=== PATIENT | female | born 1970 | race Caucasian/White ===

== ENCOUNTER → 2017-01-01 | Outpatient (CLI) | payer BC ==
[~2017-01-01] MED LIST: ATOR10TA9 PO; BENA20TA2 PO; CARV-39 PO; CARV12.52 PO; CEFD300C37 PO; CHOL500050 PO; FURO-92 PO; FURO-93 PO; INDA2.5T PO; INSU100I18 SC; INSU100V13 SC; INSU100V5 SQ-INSULIN; LEVO100T5 PO; LEVO500T33 PO; LORA0.5T PO; METF10002 PO; Oxygen INH; PIOG15TA2 PO; POTA20TA14 PO; PRED20TA PO
[2017-01-01 12:48] LABS: BLOOD UREA NITROGEN 20 mg/dL (7-18)
[2017-01-01 12:51] LABS: ASPARTATE AMINO TRANSFERASE 89 U/L (15-37)
== END | disposition home or self-care (01) ==
LOC: STAR 11:33
PROVIDERS: ATTEND Surgery
DX: Z01.818 Encounter for other preprocedural examination (principal); E11.9 Type 2 diabetes mellitus without complications; I10 Essential (primary) hypertension; E78.00 Pure hypercholesterolemia, unspecified
CPT/HCPCS: 36415; 80053; 85025; 93005

== ENCOUNTER 2017-01-21 20:56 | Inpatient (IN) | payer BC ==
[~2017-01-21] VITALS: Ht 177.8 cm; Wt 132.0 kg
[~2017-01-21 20:56] MED LIST changes: -LEVO500T33 PO; +LEVO500T47 PO
[2017-01-21] MEDS ORDERED: SODIUM CHLORIDE FLUSH 10ML SYR IVF ONE (21:00)
[2017-01-21] MEDS ORDERED: NYST1000 PO (21:19)
[2017-01-21] MEDS ORDERED: INSU100V13 SQ-INSULIN (21:19)
[2017-01-21] MEDS ORDERED: DOXY100T PO (21:19)
[2017-01-21 21:20] LABS: HEMATOCRIT 27.6 % (34.6-47.8); HEMOGLOBIN 9.1 g/dL (11.7-16.4); WHITE BLOOD COUNT 11.1 x10^3/uL (3.4-10)
[2017-01-21 21:32] LABS: ASPARTATE AMINO TRANSFERASE 41 U/L (15-37); BLOOD UREA NITROGEN 30 mg/dL (7-18)
[2017-01-21 21:37] LABS: DIFF TOTAL CELLS COUNTED 100 CELL DIFF
[2017-01-21 21:39] LABS: VERIFY COUNTS? YES
[2017-01-21 21:40] LABS: ANISOCYTOSIS 1+; LARGE PLATELETS 1+; POLYCHROMASIA 1+
[2017-01-21] MEDS ORDERED: CEFTAROLINE 600 MG in SODIUM CHLORIDE 0.9% 100 ML IV ONE (22:00)
[2017-01-21] MEDS ORDERED: SODIUM CHLORIDE 0.9% 1,000 ML IV ONE (22:42)
[2017-01-21] MEDS ORDERED: SODIUM CHLORIDE 0.9% 1,000ML IVBOLUS ONE (23:00)
[2017-01-21] MEDS ORDERED: ONDANSETRON 2MG/ML, 2ML IVPush PRN (23:00)
[2017-01-21] MEDS ORDERED: MORPHINE SULFATE 4 MG/ML, 1ML IVPush PRN (23:00)
[2017-01-21] MEDS ORDERED: OXYGEN INH SCH (23:30)
[2017-01-21] MEDS: CEFTAROLINE 300 MG in SODIUM CHLORIDE 0.9% 100 ML IV SCH (23:30)
[2017-01-21] MEDS: LORazepam 0.5MG TABLET PO SCH (23:30)
[2017-01-21] MEDS ORDERED: POLYETHYLENE GLYCOL 17 GM PACKET PO PRN (23:30)
[2017-01-21] MEDS: INSULIN REGULAR 100 UNITS/ML, 3ML VIAL SQ-INSULIN SCH (23:30)
[2017-01-21] MEDS: CARVEDILOL 25 MG TABLET PO SCH (23:30)
[2017-01-21] MEDS ORDERED: BISACODYL 10 MG SUPP PR PRN (23:30)
[2017-01-22] MEDS: ATORVASTATIN 10 MG TABLET PO SCH ×2 (01:47→20:08)
[2017-01-22] MEDS: CARVEDILOL 25 MG TABLET PO SCH (01:47)
[2017-01-22] MEDS: HEPARIN 5,000 UNITS/ML, 1ML SQ SCH ×3 (01:47→20:18)
[2017-01-22] MEDS: LORazepam 0.5MG TABLET PO SCH ×3 (01:47→20:10)
[2017-01-22] MEDS: NYSTATIN 500,000 UNITS/5 ML UDC PO SCH ×4 (01:47→20:08)
[2017-01-22] MEDS: SODIUM CHLORIDE 0.9% 1,000 ML IV SCH ×3 (01:47→22:37)
[2017-01-22] MEDS: INSULIN DETEMIR 100 UNITS/ML, PEN SQ-INSULIN SCH ×4 (01:48→20:10)
[2017-01-22 02:00] VITALS: BP 101/65
[2017-01-22] MEDS: METRONIDAZOLE PMX 500MG/100ML 100 ML IV SCH ×3 (05:18→22:37)
[2017-01-22 05:39] LABS: HEMATOCRIT 27.1 % (34.6-47.8)
[2017-01-22 05:48] LABS: ASPARTATE AMINO TRANSFERASE 44 U/L (15-37); BLOOD UREA NITROGEN 30 mg/dL (7-18)
[2017-01-22 06:00] LABS: DIFF TOTAL CELLS COUNTED 100 CELL DIFF
[2017-01-22 06:01] LABS: ANISOCYTOSIS 1+; POLYCHROMASIA 1+; VERIFY COUNTS? YES
[2017-01-22 06:02] LABS: LARGE PLATELETS 1+
[2017-01-22] MEDS: INSULIN REGULAR 100 UNITS/ML, 3ML VIAL SQ-INSULIN SCH ×3 (07:00→16:00)
[2017-01-22 07:59] VITALS: BP 103/65
[2017-01-22] MEDS: SENNA/DOCUSATE TABLET PO SCH (09:00)
[2017-01-22] MEDS: ERGOCALCIFEROL 50,000 UNIT CAPSULE PO SCH (09:00)
[2017-01-22] MEDS: LEVOTHYROXINE 150 MCG TABLET PO SCH (11:36)
[2017-01-22] MEDS: CEFTRIAXONE PMX 2GM/50ML 50 ML IV SCH (11:36)
[2017-01-22] MEDS: CEFTAROLINE 300 MG in SODIUM CHLORIDE 0.9% 100 ML IV SCH (13:09)
[2017-01-22] MEDS: HYDROCORTISONE 10 MG TABLET PO SCH (13:10)
[2017-01-22 14:00] VITALS: BP 103/58
[2017-01-22] MEDS: HYDROCORTISONE 5 MG TABLET PO SCH (17:20)
[2017-01-22] MEDS: INSULIN ASPART 100 UNITS/ML, PEN SQ-INSULIN SCH ×2 (18:00→20:11)
[2017-01-22 21:10] VITALS: BP 107/65
[2017-01-23 02:00] VITALS: BP 112/68
[2017-01-23] MEDS ORDERED: LORazepam 1MG TABLET ONE (03:25)
[2017-01-23] MEDS: LORazepam 0.5MG TABLET PO SCH ×3 (03:29→20:36)
[2017-01-23] MEDS: NYSTATIN 500,000 UNITS/5 ML UDC PO SCH ×4 (03:33→20:37)
[2017-01-23] MEDS: HEPARIN 5,000 UNITS/ML, 1ML SQ SCH ×3 (03:33→20:36)
[2017-01-23 04:56] LABS: HEMATOCRIT 27.8 % (34.6-47.8); HEMOGLOBIN 9.1 g/dL (11.7-16.4); WHITE BLOOD COUNT 15.9 x10^3/uL (3.4-10)
[2017-01-23 05:02] LABS: ASPARTATE AMINO TRANSFERASE 33 U/L (15-37); BLOOD UREA NITROGEN 30 mg/dL (7-18); TOTAL IRON BINDING CAPACITY 129 mcg/dL (250-450)
[2017-01-23] MEDS: ONDANSETRON 2MG/ML, 2ML IVPush PRN ×2 (05:39→20:40)
[2017-01-23 05:44] LABS: DIFF TOTAL CELLS COUNTED 100 CELL DIFF
[2017-01-23 05:48] LABS: VERIFY COUNTS? YES
[2017-01-23 05:49] LABS: ANISOCYTOSIS 1+; POLYCHROMASIA 1+
[2017-01-23 08:15] VITALS: BP 143/77
[2017-01-23] MEDS: SODIUM CHLORIDE 0.9% 1,000 ML IV SCH (08:24)
[2017-01-23] MEDS: METRONIDAZOLE PMX 500MG/100ML 100 ML IV SCH (08:25)
[2017-01-23] MEDS: HYDROCORTISONE 10 MG TABLET PO SCH (08:25)
[2017-01-23] MEDS: SENNA/DOCUSATE TABLET PO SCH (08:35)
[2017-01-23] MEDS: INSULIN REGULAR 100 UNITS/ML, 3ML VIAL SQ-INSULIN SCH ×3 (08:35→16:49)
[2017-01-23] MEDS: INSULIN ASPART 100 UNITS/ML, PEN SQ-INSULIN SCH ×4 (08:47→20:39)
[2017-01-23] MEDS: LEVOTHYROXINE 150 MCG TABLET PO SCH (08:48)
[2017-01-23] MEDS: INSULIN DETEMIR 100 UNITS/ML, PEN SQ-INSULIN SCH ×2 (08:48→20:39)
[2017-01-23] MEDS: CEFTRIAXONE PMX 2GM/50ML 50 ML IV SCH (11:26)
[2017-01-23] MEDS ORDERED: MAGNESIUM SULFATE PMX 2GM/50ML 50 ML IV ONE (13:00)
[2017-01-23] MEDS ORDERED: VANCOMYCIN PER PHARMACY MC PRN (13:00)
[2017-01-23] MEDS ORDERED: FUROSEMIDE 40 MG/4 ML IV ONE (13:00)
[2017-01-23] MEDS ORDERED: VANCOMYCIN PMX 1GM/200ML 200 ML IV ONE (13:00)
[2017-01-23] MEDS ORDERED: PHARMACOKINETIC MONITORING MC PRN (13:30)
[2017-01-23] MEDS ORDERED: VANCOMYCIN 2,000 MG in SODIUM CHLORIDE 0.9% 500 ML IV ONE (13:30)
[2017-01-23] MEDS ORDERED: PHARMACOKINETIC CONSULTATION MC ONE (13:30)
[2017-01-23] MEDS: metroNIDAZOLE 500 MG TABLET PO SCH ×2 (14:21→20:37)
[2017-01-23] MEDS: BACITRACIN ZINC OINT 500U/GM, 0.9 GM TP SCH ×3 (16:56→20:40)
[2017-01-23 17:01] VITALS: BP 107/65
[2017-01-23] MEDS: HYDROCORTISONE 5 MG TABLET PO SCH (18:17)
[2017-01-23 19:24] VITALS: BP 111/65
[2017-01-23] MEDS: ALBUMIN HUMAN 25% 100 ML IV SCH (20:36)
[2017-01-23] MEDS: SULFAMETH./TRIMETHOPRIM DS 800MG/160MG TABLET PO SCH (20:37)
[2017-01-23] MEDS: ATORVASTATIN 10 MG TABLET PO SCH (20:37)
[2017-01-23] MEDS: ACETAMINOPHEN 325 MG TABLET PO PRN (23:58)
[2017-01-24 01:36] VITALS: BP 113/72
[2017-01-24] MEDS: SODIUM CHLORIDE 0.9% 1,000 ML IV SCH ×2 (02:34→12:35)
[2017-01-24] MEDS: NYSTATIN 500,000 UNITS/5 ML UDC PO SCH ×4 (05:03→21:56)
[2017-01-24] MEDS: metroNIDAZOLE 500 MG TABLET PO SCH ×3 (05:04→21:56)
[2017-01-24] MEDS: HEPARIN 5,000 UNITS/ML, 1ML SQ SCH ×3 (05:04→21:55)
[2017-01-24] MEDS: LEVOTHYROXINE 150 MCG TABLET PO SCH (06:08)
[2017-01-24 06:26] LABS: HEMATOCRIT 27.4 % (34.6-47.8); WHITE BLOOD COUNT 18.9 x10^3/uL (3.4-10)
[2017-01-24 06:41] LABS: BLOOD UREA NITROGEN 32 mg/dL (7-18)
[2017-01-24 06:52] LABS: DIFF TOTAL CELLS COUNTED 100 CELL DIFF
[2017-01-24 06:54] LABS: VERIFY COUNTS? YES
[2017-01-24 06:59] LABS: ANISOCYTOSIS 1+; POIKILOCYTOSIS 1+; POLYCHROMASIA 1+
[2017-01-24] MEDS: INSULIN REGULAR 100 UNITS/ML, 3ML VIAL SQ-INSULIN SCH ×3 (07:00→15:24)
[2017-01-24 07:57] VITALS: BP 132/75
[2017-01-24] MEDS: SENNA/DOCUSATE TABLET PO SCH (08:32)
[2017-01-24] MEDS: ALBUMIN HUMAN 25% 100 ML IV SCH ×2 (08:46→21:55)
[2017-01-24] MEDS: SULFAMETH./TRIMETHOPRIM DS 800MG/160MG TABLET PO SCH (08:47)
[2017-01-24] MEDS: HYDROCORTISONE 10 MG TABLET PO SCH (08:48)
[2017-01-24] MEDS: INSULIN ASPART 100 UNITS/ML, PEN SQ-INSULIN SCH ×4 (08:48→22:04)
[2017-01-24] MEDS: INSULIN DETEMIR 100 UNITS/ML, PEN SQ-INSULIN SCH ×2 (08:49→22:04)
[2017-01-24] MEDS: LORazepam 0.5MG TABLET PO SCH ×2 (08:50→21:56)
[2017-01-24] MEDS: BACITRACIN ZINC OINT 500U/GM, 0.9 GM TP SCH ×3 (08:54→21:00)
[2017-01-24] MEDS: CEFTRIAXONE PMX 2GM/50ML 50 ML IV SCH (12:34)
[2017-01-24 13:46] VITALS: BP 130/72
[2017-01-24] MEDS: HYDROCORTISONE 5 MG TABLET PO SCH (16:50)
[2017-01-24 21:00] VITALS: BP 132/74
[2017-01-24] MEDS: ATORVASTATIN 10 MG TABLET PO SCH (21:56)
[2017-01-24] MEDS ORDERED: VANCOMYCIN 1,500 MG in SODIUM CHLORIDE 0.9% 250 ML IV ONE (22:00)
[2017-01-25] MEDS: SODIUM CHLORIDE 0.9% 1,000 ML IV SCH ×2 (00:14→11:52)
[2017-01-25 01:00] VITALS: BP 120/71
[2017-01-25] MEDS: NYSTATIN 500,000 UNITS/5 ML UDC PO SCH ×4 (05:10→20:53)
[2017-01-25] MEDS: HEPARIN 5,000 UNITS/ML, 1ML SQ SCH ×3 (05:10→20:26)
[2017-01-25] MEDS: LEVOTHYROXINE 150 MCG TABLET PO SCH (05:11)
[2017-01-25] MEDS: metroNIDAZOLE 500 MG TABLET PO SCH ×3 (05:11→20:27)
[2017-01-25] MEDS: ONDANSETRON 2MG/ML, 2ML IVPush PRN (05:28)
[2017-01-25] MEDS: INSULIN ASPART 100 UNITS/ML, PEN SQ-INSULIN SCH ×4 (07:00→20:54)
[2017-01-25] MEDS: INSULIN REGULAR 100 UNITS/ML, 3ML VIAL SQ-INSULIN SCH ×3 (07:00→16:00)
[2017-01-25 08:11] VITALS: BP 151/79
[2017-01-25] MEDS: BACITRACIN ZINC OINT 500U/GM, 0.9 GM TP SCH ×3 (09:00→21:00)
[2017-01-25] MEDS: SENNA/DOCUSATE TABLET PO SCH (09:00)
[2017-01-25] MEDS: LORazepam 0.5MG TABLET PO SCH ×2 (09:00→20:53)
[2017-01-25] MEDS ORDERED: LORazepam 1MG TABLET ONE (10:07)
[2017-01-25 10:17] LABS: BLOOD UREA NITROGEN 35 mg/dL (7-18)
[2017-01-25] MEDS: ALBUMIN HUMAN 25% 100 ML IV SCH ×2 (10:19→20:26)
[2017-01-25 10:20] LABS: ASPARTATE AMINO TRANSFERASE 18 U/L (15-37)
[2017-01-25] MEDS: HYDROCORTISONE 10 MG TABLET PO SCH (10:20)
[2017-01-25 12:09] VITALS: BP 164/85
[2017-01-25] MEDS: INSULIN DETEMIR 100 UNITS/ML, PEN SQ-INSULIN SCH ×2 (12:10→20:55)
[2017-01-25] MEDS: CEFTRIAXONE PMX 2GM/50ML 50 ML IV SCH (12:56)
[2017-01-25] MEDS: HYDROCORTISONE 5 MG TABLET PO SCH (16:54)
[2017-01-25 18:49] VITALS: BP 152/83
[2017-01-25] MEDS ORDERED: VANCOMYCIN PER PHARMACY MC PRN (20:00)
[2017-01-25] MEDS ORDERED: BISACODYL 10 MG SUPP PR PRN (20:00)
[2017-01-25] MEDS ORDERED: PHARMACOKINETIC MONITORING MC PRN (20:00)
[2017-01-25] MEDS ORDERED: POLYETHYLENE GLYCOL 17 GM PACKET PO PRN (20:00)
[2017-01-25] MEDS: ATORVASTATIN 10 MG TABLET PO SCH (20:27)
[2017-01-26] MEDS: SODIUM CHLORIDE 0.9% 1,000 ML IV SCH ×2 (00:58→10:20)
[2017-01-26 03:24] VITALS: BP 144/76
[2017-01-26] MEDS: NYSTATIN 500,000 UNITS/5 ML UDC PO SCH ×4 (03:27→21:19)
[2017-01-26 04:57] LABS: HEMATOCRIT 26.9 % (34.6-47.8)
[2017-01-26] MEDS: HEPARIN 5,000 UNITS/ML, 1ML SQ SCH ×3 (04:59→21:13)
[2017-01-26] MEDS: LEVOTHYROXINE 150 MCG TABLET PO SCH (04:59)
[2017-01-26] MEDS: metroNIDAZOLE 500 MG TABLET PO SCH (04:59)
[2017-01-26 05:21] LABS: ASPARTATE AMINO TRANSFERASE 17 U/L (15-37); BLOOD UREA NITROGEN 32 mg/dL (7-18)
[2017-01-26 05:37] LABS: DIFF TOTAL CELLS COUNTED 100 CELL DIFF
[2017-01-26 05:39] LABS: ANISOCYTOSIS 1+; VERIFY COUNTS? YES
[2017-01-26 05:40] LABS: POLYCHROMASIA 1+
[2017-01-26] MEDS ORDERED: INSULIN REGULAR 100 UNITS/ML, 3ML VIAL SQ-INSULIN SCH (07:00)
[2017-01-26] MEDS: INSULIN ASPART 100 UNITS/ML, PEN SQ-INSULIN SCH ×4 (07:00→21:23)
[2017-01-26 07:01] VITALS: BP 130/78
[2017-01-26] MEDS: SENNA/DOCUSATE TABLET PO SCH (09:00)
[2017-01-26] MEDS: LORazepam 0.5MG TABLET PO SCH ×2 (09:00→21:20)
[2017-01-26] MEDS: LACTOBACILLUS 1GM/ PACKET PO SCH ×3 (09:00→21:19)
[2017-01-26] MEDS: HYDROCORTISONE 10 MG TABLET PO SCH (10:03)
[2017-01-26] MEDS: METRONIDAZOLE PMX 500MG/100ML 100 ML IV SCH ×2 (10:04→17:14)
[2017-01-26] MEDS: VANCOMYCIN 50 MG/ML ORAL SUSP PO SCH ×3 (10:04→21:22)
[2017-01-26] MEDS: BACITRACIN ZINC OINT 500U/GM, 0.9 GM TP SCH ×3 (10:04→21:19)
[2017-01-26] MEDS: INSULIN DETEMIR 100 UNITS/ML, PEN SQ-INSULIN SCH ×2 (10:05→21:24)
[2017-01-26 10:55] LABS: HEMOGLOBIN 9.3 g/dL (11.7-16.4); WHITE BLOOD COUNT 17.2 x10^3/uL (3.4-10)
[2017-01-26 11:05] LABS: ASPARTATE AMINO TRANSFERASE 17 U/L (15-37); BLOOD UREA NITROGEN 31 mg/dL (7-18)
[2017-01-26 11:30] LABS: DIFF TOTAL CELLS COUNTED 100 CELL DIFF
[2017-01-26 11:31] LABS: ANISOCYTOSIS 1+; POIKILOCYTOSIS 1+; POLYCHROMASIA 1+; VERIFY COUNTS? YES
[2017-01-26] MEDS: ALBUMIN HUMAN 25% 100 ML IV SCH ×2 (11:32→21:15)
[2017-01-26 13:17] VITALS: BP 146/87
[2017-01-26] MEDS: CEFTRIAXONE PMX 2GM/50ML 50 ML IV SCH (15:43)
[2017-01-26] MEDS: HYDROCORTISONE 5 MG TABLET PO SCH (17:15)
[2017-01-26 20:00] VITALS: BP 143/75
[2017-01-26] MEDS: ATORVASTATIN 10 MG TABLET PO SCH (21:19)
[2017-01-27 01:30] LABS: OCCBLD OBC PASS
[2017-01-27] MEDS: METRONIDAZOLE PMX 500MG/100ML 100 ML IV SCH ×3 (01:55→18:04)
[2017-01-27 02:00] VITALS: BP 132/75
[2017-01-27] MEDS: HEPARIN 5,000 UNITS/ML, 1ML SQ SCH ×3 (04:10→21:12)
[2017-01-27] MEDS: VANCOMYCIN 50 MG/ML ORAL SUSP PO SCH ×4 (04:10→21:13)
[2017-01-27] MEDS: NYSTATIN 500,000 UNITS/5 ML UDC PO SCH ×4 (04:10→21:15)
[2017-01-27] MEDS: LEVOTHYROXINE 150 MCG TABLET PO SCH ×2 (05:54→08:46)
[2017-01-27] MEDS: INSULIN ASPART 100 UNITS/ML, PEN SQ-INSULIN SCH ×4 (07:00→21:15)
[2017-01-27 07:56] VITALS: BP 138/78
[2017-01-27] MEDS: LORazepam 0.5MG TABLET PO SCH ×2 (08:31→21:12)
[2017-01-27] MEDS: SENNA/DOCUSATE TABLET PO SCH (08:31)
[2017-01-27] MEDS: LACTOBACILLUS 1GM/ PACKET PO SCH ×3 (08:46→21:13)
[2017-01-27] MEDS: SODIUM CHLORIDE 0.9% 1,000 ML IV SCH ×2 (08:47→18:05)
[2017-01-27] MEDS: HYDROCORTISONE 10 MG TABLET PO SCH (08:47)
[2017-01-27] MEDS: BACITRACIN ZINC OINT 500U/GM, 0.9 GM TP SCH ×2 (13:29→17:15)
[2017-01-27] MEDS: INSULIN DETEMIR 100 UNITS/ML, PEN SQ-INSULIN SCH ×2 (13:32→21:14)
[2017-01-27 13:48] VITALS: BP 149/103
[2017-01-27] MEDS: CEFTRIAXONE PMX 2GM/50ML 50 ML IV SCH (17:15)
[2017-01-27] MEDS: HYDROCORTISONE 5 MG TABLET PO SCH (18:05)
[2017-01-27 20:00] VITALS: BP 145/75
[2017-01-27] MEDS: ATORVASTATIN 10 MG TABLET PO SCH (21:13)
[2017-01-27] MEDS: BACITRACIN OINT 500U/GM, 15 GM TP SCH (21:22)
[2017-01-27] MEDS: ALBUMIN HUMAN 25% 100 ML IV SCH (21:22)
[2017-01-28] MEDS: METRONIDAZOLE PMX 500MG/100ML 100 ML IV SCH ×3 (00:49→18:45)
[2017-01-28 02:00] VITALS: BP 144/74
[2017-01-28] MEDS: VANCOMYCIN 50 MG/ML ORAL SUSP PO SCH ×4 (03:38→21:02)
[2017-01-28] MEDS: NYSTATIN 500,000 UNITS/5 ML UDC PO SCH ×4 (03:38→21:02)
[2017-01-28] MEDS: HEPARIN 5,000 UNITS/ML, 1ML SQ SCH ×3 (03:46→21:01)
[2017-01-28] MEDS: LEVOTHYROXINE 150 MCG TABLET PO SCH ×2 (05:30→05:37)
[2017-01-28 07:22] VITALS: BP 141/78
[2017-01-28] MEDS: SENNA/DOCUSATE TABLET PO SCH (08:11)
[2017-01-28] MEDS: INSULIN ASPART 100 UNITS/ML, PEN SQ-INSULIN SCH ×4 (08:20→21:03)
[2017-01-28] MEDS: LORazepam 0.5MG TABLET PO SCH ×3 (09:00→21:07)
[2017-01-28] MEDS: HYDROCORTISONE 10 MG TABLET PO SCH (10:12)
[2017-01-28] MEDS: SODIUM CHLORIDE 0.9% 1,000 ML IV SCH ×2 (10:12→21:26)
[2017-01-28] MEDS: BACITRACIN OINT 500U/GM, 15 GM TP SCH ×3 (10:13→21:02)
[2017-01-28] MEDS: ALBUMIN HUMAN 25% 100 ML IV SCH (10:13)
[2017-01-28] MEDS: INSULIN DETEMIR 100 UNITS/ML, PEN SQ-INSULIN SCH ×2 (10:14→21:04)
[2017-01-28] MEDS: LACTOBACILLUS 1GM/ PACKET PO SCH ×3 (10:28→21:01)
[2017-01-28 11:21] LABS: ASPARTATE AMINO TRANSFERASE 20 U/L (15-37); BLOOD UREA NITROGEN 22 mg/dL (7-18)
[2017-01-28 13:06] VITALS: BP 146/81
[2017-01-28] MEDS ORDERED: VANCOMYCIN 1,900 MG in SODIUM CHLORIDE 0.9% 250 ML IV ONE (15:00)
[2017-01-28] MEDS ORDERED: VANCOMYCIN 1,200 MG in SODIUM CHLORIDE 0.9% 250 ML IV ONE (15:00)
[2017-01-28] MEDS: CEFTRIAXONE PMX 2GM/50ML 50 ML IV SCH (16:11)
[2017-01-28] MEDS: HYDROCORTISONE 5 MG TABLET PO SCH ×2 (17:57→18:17)
[2017-01-28] MEDS: ACETAMINOPHEN 325 MG TABLET PO PRN (18:10)
[2017-01-28 20:00] VITALS: BP 144/76
[2017-01-28] MEDS: ATORVASTATIN 10 MG TABLET PO SCH (21:01)
[2017-01-29] MEDS: VANCOMYCIN 50 MG/ML ORAL SUSP PO SCH ×4 (03:00→20:50)
[2017-01-29] MEDS: METRONIDAZOLE PMX 500MG/100ML 100 ML IV SCH ×3 (03:00→19:24)
[2017-01-29] MEDS: HEPARIN 5,000 UNITS/ML, 1ML SQ SCH ×3 (04:00→19:25)
[2017-01-29] MEDS: NYSTATIN 500,000 UNITS/5 ML UDC PO SCH ×4 (04:00→22:00)
[2017-01-29] MEDS: ACETAMINOPHEN 325 MG TABLET PO PRN (04:00)
[2017-01-29 05:01] LABS: HEMATOCRIT 26.3 % (34.6-47.8); HEMOGLOBIN 8.5 g/dL (11.7-16.4)
[2017-01-29 05:17] LABS: ASPARTATE AMINO TRANSFERASE 19 U/L (15-37); BLOOD UREA NITROGEN 17 mg/dL (7-18)
[2017-01-29] MEDS: LEVOTHYROXINE 150 MCG TABLET PO SCH (06:00)
[2017-01-29] MEDS: ERGOCALCIFEROL 50,000 UNIT CAPSULE PO SCH (09:00)
[2017-01-29] MEDS: LORazepam 0.5MG TABLET PO SCH ×2 (09:00→20:49)
[2017-01-29] MEDS: SENNA/DOCUSATE TABLET PO SCH (09:00)
[2017-01-29] MEDS: LACTOBACILLUS 1GM/ PACKET PO SCH ×3 (09:00→20:50)
[2017-01-29] MEDS: INSULIN DETEMIR 100 UNITS/ML, PEN SQ-INSULIN SCH ×2 (09:38→20:50)
[2017-01-29] MEDS: INSULIN ASPART 100 UNITS/ML, PEN SQ-INSULIN SCH ×4 (09:38→20:51)
[2017-01-29] MEDS: HYDROCORTISONE 10 MG TABLET PO SCH (09:39)
[2017-01-29] MEDS: BACITRACIN OINT 500U/GM, 15 GM TP SCH ×3 (09:47→20:50)
[2017-01-29] MEDS: GLIMEPIRIDE 4 MG TABLET PO SCH (10:36)
[2017-01-29 13:09] LABS: RHEUMATOID FACTOR SCREEN NEGATIVE (NEGATIVE)
[2017-01-29 14:22] VITALS: BP 142/79
[2017-01-29 14:35] LABS: ANA SCREEN POSITIVE (Negative)
[2017-01-29] MEDS: HYDROCORTISONE 5 MG TABLET PO SCH (17:34)
[2017-01-29] MEDS: CEFTRIAXONE PMX 2GM/50ML 50 ML IV SCH (19:24)
[2017-01-29 19:42] LABS: PATH.CAST-FLAG NOT PRESENT; SPERM-FLAG NOT PRESENT; SRC-FLAG NOT PRESENT; XTAL-FLAG NOT PRESENT; YLC-FLAG NOT PRESENT
[2017-01-29 19:43] VITALS: BP 163/79
[2017-01-29] MEDS: ATORVASTATIN 10 MG TABLET PO SCH (20:50)
[2017-01-30 00:06] LABS: COMPLEMENT C3 109 mg/dL (82-167); COMPLEMENT C4 15 mg/dL (14-44); COMPLEMENT TOTAL (CH50) >60 U/mL (42-60)
[2017-01-30] MEDS: NYSTATIN 500,000 UNITS/5 ML UDC PO SCH ×5 (02:22→21:42)
[2017-01-30] MEDS: METRONIDAZOLE PMX 500MG/100ML 100 ML IV SCH ×4 (02:23→18:56)
[2017-01-30] MEDS: VANCOMYCIN 50 MG/ML ORAL SUSP PO SCH ×5 (02:23→21:42)
[2017-01-30 02:32] VITALS: BP 164/80
[2017-01-30] MEDS: HEPARIN 5,000 UNITS/ML, 1ML SQ SCH ×3 (05:25→21:42)
[2017-01-30] MEDS: LEVOTHYROXINE 150 MCG TABLET PO SCH (05:25)
[2017-01-30 05:36] LABS: HEMATOCRIT 26.8 % (34.6-47.8); HEMOGLOBIN 8.8 g/dL (11.7-16.4); WHITE BLOOD COUNT 12.7 x10^3/uL (3.4-10)
[2017-01-30 05:46] LABS: BLOOD UREA NITROGEN 12 mg/dL (7-18)
[2017-01-30 05:51] LABS: ASPARTATE AMINO TRANSFERASE 20 U/L (15-37)
[2017-01-30 06:23] LABS: DIFF TOTAL CELLS COUNTED 100 CELL DIFF
[2017-01-30 06:25] LABS: VERIFY COUNTS? YES
[2017-01-30 06:26] LABS: ANISOCYTOSIS 1+; POLYCHROMASIA 1+
[2017-01-30] MEDS: SENNA/DOCUSATE TABLET PO SCH (07:48)
[2017-01-30 07:51] VITALS: BP 146/70
[2017-01-30] MEDS: INSULIN DETEMIR 100 UNITS/ML, PEN SQ-INSULIN SCH ×2 (08:46→22:47)
[2017-01-30] MEDS: INSULIN ASPART 100 UNITS/ML, PEN SQ-INSULIN SCH ×4 (08:46→22:47)
[2017-01-30] MEDS: LACTOBACILLUS 1GM/ PACKET PO SCH ×3 (08:47→21:00)
[2017-01-30] MEDS: GLIMEPIRIDE 4 MG TABLET PO SCH (08:47)
[2017-01-30] MEDS: LORazepam 0.5MG TABLET PO SCH ×2 (08:47→21:41)
[2017-01-30] MEDS: HYDROCORTISONE 10 MG TABLET PO SCH (08:47)
[2017-01-30] MEDS: BACITRACIN OINT 500U/GM, 15 GM TP SCH ×3 (08:48→21:42)
[2017-01-30 14:30] VITALS: BP 138/75
[2017-01-30 15:06] LABS: PROTEINASE 3 (PR-3) AB <3.5 U/mL (0.0-3.5)
[2017-01-30] MEDS: CEFTRIAXONE PMX 2GM/50ML 50 ML IV SCH (15:59)
[2017-01-30] MEDS: HYDROCORTISONE 5 MG TABLET PO SCH (17:12)
[2017-01-30 21:20] VITALS: BP 169/82
[2017-01-30] MEDS: ATORVASTATIN 10 MG TABLET PO SCH (21:41)
[2017-01-31 03:17] VITALS: BP 151/89
[2017-01-31] MEDS: VANCOMYCIN 50 MG/ML ORAL SUSP PO SCH ×4 (03:42→22:33)
[2017-01-31] MEDS: NYSTATIN 500,000 UNITS/5 ML UDC PO SCH ×4 (03:42→22:33)
[2017-01-31 05:29] LABS: HEMATOCRIT 27.9 % (34.6-47.8); HEMOGLOBIN 9.1 g/dL (11.7-16.4); WHITE BLOOD COUNT 10.9 x10^3/uL (3.4-10)
[2017-01-31 05:39] LABS: BLOOD UREA NITROGEN 9 mg/dL (7-18)
[2017-01-31] MEDS: LEVOTHYROXINE 150 MCG TABLET PO SCH (06:36)
[2017-01-31] MEDS: HEPARIN 5,000 UNITS/ML, 1ML SQ SCH ×3 (06:36→23:04)
[2017-01-31 08:17] VITALS: BP 154/82
[2017-01-31] MEDS: VANCOMYCIN 1,400 MG in SODIUM CHLORIDE 0.9% 250 ML IV SCH ×2 (09:00→13:47)
[2017-01-31] MEDS: LORazepam 0.5MG TABLET PO SCH ×2 (09:00→22:32)
[2017-01-31] MEDS: SENNA/DOCUSATE TABLET PO SCH (09:00)
[2017-01-31] MEDS: HYDROCORTISONE 10 MG TABLET PO SCH (10:24)
[2017-01-31] MEDS: GLIMEPIRIDE 4 MG TABLET PO SCH (10:24)
[2017-01-31] MEDS: BACITRACIN OINT 500U/GM, 15 GM TP SCH ×3 (10:24→22:33)
[2017-01-31] MEDS: LACTOBACILLUS 1GM/ PACKET PO SCH ×4 (10:25→22:32)
[2017-01-31] MEDS: INSULIN ASPART 100 UNITS/ML, PEN SQ-INSULIN SCH ×4 (10:26→23:04)
[2017-01-31] MEDS: INSULIN DETEMIR 100 UNITS/ML, PEN SQ-INSULIN SCH ×2 (10:26→23:03)
[2017-01-31] MEDS: METRONIDAZOLE PMX 500MG/100ML 100 ML IV SCH (12:21)
[2017-01-31 12:32] VITALS: BP 176/81
[2017-01-31] MEDS: CEFTRIAXONE PMX 2GM/50ML 50 ML IV SCH (16:55)
[2017-01-31] MEDS: HYDROCORTISONE 5 MG TABLET PO SCH (17:10)
[2017-01-31 20:33] VITALS: BP 144/74
[2017-01-31] MEDS: FLUCONAZOLE 200 MG/100 ML 100 ML IV SCH (22:32)
[2017-01-31] MEDS: ATORVASTATIN 10 MG TABLET PO SCH (22:33)
[2017-02-01 01:08] VITALS: BP 155/75
[2017-02-01] MEDS: VANCOMYCIN 50 MG/ML ORAL SUSP PO SCH ×4 (04:55→21:10)
[2017-02-01] MEDS: NYSTATIN 500,000 UNITS/5 ML UDC PO SCH ×4 (04:55→21:10)
[2017-02-01] MEDS: LEVOTHYROXINE 150 MCG TABLET PO SCH (05:19)
[2017-02-01] MEDS: HEPARIN 5,000 UNITS/ML, 1ML SQ SCH ×3 (05:19→21:10)
[2017-02-01 05:49] LABS: BLOOD UREA NITROGEN 10 mg/dL (7-18)
[2017-02-01] MEDS: HYDROCORTISONE 10 MG TABLET PO SCH (07:30)
[2017-02-01] MEDS: INSULIN ASPART 100 UNITS/ML, PEN SQ-INSULIN SCH ×3 (08:25→18:27)
[2017-02-01] MEDS: INSULIN DETEMIR 100 UNITS/ML, PEN SQ-INSULIN SCH ×2 (08:25→21:13)
[2017-02-01] MEDS: SENNA/DOCUSATE TABLET PO SCH (08:26)
[2017-02-01] MEDS: LACTOBACILLUS 1GM/ PACKET PO SCH ×4 (08:26→21:10)
[2017-02-01] MEDS: GLIMEPIRIDE 4 MG TABLET PO SCH (08:26)
[2017-02-01] MEDS: VANCOMYCIN 1,400 MG in SODIUM CHLORIDE 0.9% 250 ML IV SCH (08:27)
[2017-02-01] MEDS: BACITRACIN OINT 500U/GM, 15 GM TP SCH ×3 (08:27→21:10)
[2017-02-01] MEDS: LORazepam 0.5MG TABLET PO SCH (08:27)
[2017-02-01 08:44] VITALS: BP 150/72
[2017-02-01 14:09] VITALS: BP 162/82
[2017-02-01] MEDS: HYDROCORTISONE 5 MG TABLET PO SCH (18:27)
[2017-02-01] MEDS: FLUCONAZOLE 200 MG/100 ML 100 ML IV SCH (18:28)
[2017-02-01] MEDS ORDERED: POLYETHYLENE GLYCOL 17 GM PACKET PO PRN (19:00)
[2017-02-01] MEDS ORDERED: PHARMACOKINETIC MONITORING MC PRN (19:00)
[2017-02-01] MEDS ORDERED: BISACODYL 10 MG SUPP PR PRN (19:00)
[2017-02-01 20:00] VITALS: BP 169/75
[2017-02-01] MEDS ORDERED: LORazepam 0.5MG TABLET PO SCH (21:00)
[2017-02-01] MEDS: ATORVASTATIN 10 MG TABLET PO SCH (21:10)
[2017-02-02 02:00] VITALS: BP 168/65
[2017-02-02] MEDS: VANCOMYCIN 50 MG/ML ORAL SUSP PO SCH ×4 (04:12→21:07)
[2017-02-02] MEDS: LEVOTHYROXINE 150 MCG TABLET PO SCH (04:12)
[2017-02-02] MEDS: NYSTATIN 500,000 UNITS/5 ML UDC PO SCH ×4 (04:12→21:06)
[2017-02-02] MEDS: HEPARIN 5,000 UNITS/ML, 1ML SQ SCH ×3 (04:12→21:06)
[2017-02-02 08:02] VITALS: BP 178/76
[2017-02-02] MEDS: INSULIN DETEMIR 100 UNITS/ML, PEN SQ-INSULIN SCH ×2 (08:43→21:28)
[2017-02-02] MEDS: INSULIN ASPART 100 UNITS/ML, PEN SQ-INSULIN SCH ×2 (08:44→11:00)
[2017-02-02] MEDS: HYDROCORTISONE 10 MG TABLET PO SCH (08:44)
[2017-02-02] MEDS: GLIMEPIRIDE 4 MG TABLET PO SCH (08:44)
[2017-02-02] MEDS: SENNA/DOCUSATE TABLET PO SCH (08:45)
[2017-02-02] MEDS: LACTOBACILLUS 1GM/ PACKET PO SCH ×3 (08:45→21:05)
[2017-02-02 08:50] VITALS: BP 162/75
[2017-02-02] MEDS: BACITRACIN OINT 500U/GM, 15 GM TP SCH ×3 (09:00→21:06)
[2017-02-02] MEDS ORDERED: INSULIN ASPART 100 UNITS/ML, PEN SQ-INSULIN ONE (11:30)
[2017-02-02] MEDS ORDERED: CODE BLUE RESPONSE XX ONE (11:58)
[2017-02-02] MEDS ORDERED: VECURONIUM 10 MG ONE (12:00)
[2017-02-02] MEDS ORDERED: ETOMIDATE 20 MG/10 ML ONE (12:00)
[2017-02-02 12:16] LABS: ABG COLLECTION SITE RIGHT BRACHIAL
[2017-02-02 12:25] LABS: BLOOD UREA NITROGEN 7 mg/dL (7-18)
[2017-02-02 12:29] LABS: HEMATOCRIT 30.5 % (34.6-47.8); HEMOGLOBIN 9.8 g/dL (11.7-16.4); IS PT STATUS REG ER OR PRE ER? NO; WHITE BLOOD COUNT 19.5 x10^3/uL (3.4-10)
[2017-02-02] MEDS ORDERED: PROPOFOL 100 ML IV ONE (12:37)
[2017-02-02] MEDS ORDERED: OMNIPAQUE 350 MG/ML, 150 ML BOTTLE ONE (12:44)
[2017-02-02 12:52] LABS: DIFF TOTAL CELLS COUNTED 100 CELL DIFF
[2017-02-02 12:54] LABS: ANISOCYTOSIS 1+; POLYCHROMASIA 1+; VERIFY COUNTS? YES
[2017-02-02 13:17] LABS: ABG COLLECTION SITE RIGHT RADIAL; COLLATERAL CIRCULATION TESTING NORMAL; FIO2 70 %
[2017-02-02] MEDS ORDERED: PROPOFOL 100 ML IV PRN (13:38)
[2017-02-02] MEDS ORDERED: LACTULOSE 20 GM/30 ML UDC NG PRN (14:00)
[2017-02-02] MEDS ORDERED: LIDOCAINE-MPF 1%, 2ML ENDO PRN (14:00)
[2017-02-02] MEDS ORDERED: VANCOMYCIN PER PHARMACY MC PRN (14:30)
[2017-02-02] MEDS ORDERED: MIDAZOLAM HCL 25 MG in SODIUM CHLORIDE 0.9% 245 ML IV PRN (14:30)
[2017-02-02] MEDS ORDERED: POTASSIUM CHLORIDE 20 MEQ TAB.ER.PRT PO ONE (15:00)
[2017-02-02 15:18] LABS: ABG COLLECTION SITE LEFT RADIAL; COLLATERAL CIRCULATION TESTING NORMAL
[2017-02-02] MEDS: PIPERACILLIN/TAZO/PMX 4.5GM 100 ML IV SCH ×2 (15:58→21:03)
[2017-02-02] MEDS: MIDAZOLAM HCL 50 MG in SODIUM CHLORIDE 0.9% 240 ML IV PRN (17:09)
[2017-02-02] MEDS: VANCOMYCIN 1,400 MG in SODIUM CHLORIDE 0.9% 250 ML IV SCH (17:22)
[2017-02-02] MEDS: ACETAMINOPHEN 325 MG TABLET PO PRN (17:34)
[2017-02-02] MEDS: HYDROCORTISONE 5 MG TABLET PO SCH (18:30)
[2017-02-02 18:47] LABS: IS PT STATUS REG ER OR PRE ER? NO
[2017-02-02] MEDS: FLUCONAZOLE 200 MG/100 ML 100 ML IV SCH (19:17)
[2017-02-02] MEDS: ATORVASTATIN 10 MG TABLET PO SCH (21:05)
[2017-02-02] MEDS: INSULIN REGULAR 100 UNITS/ML, 3ML VIAL SQ-INSULIN SCH (21:28)
[2017-02-03] MEDS: MIDAZOLAM HCL 50 MG in SODIUM CHLORIDE 0.9% 240 ML IV PRN ×5 (01:20→21:58)
[2017-02-03 01:49] LABS: IS PT STATUS REG ER OR PRE ER? NO
[2017-02-03] MEDS: PIPERACILLIN/TAZO/PMX 4.5GM 100 ML IV SCH ×4 (03:32→21:58)
[2017-02-03] MEDS: NYSTATIN 500,000 UNITS/5 ML UDC PO SCH ×4 (03:32→21:57)
[2017-02-03] MEDS: VANCOMYCIN 50 MG/ML ORAL SUSP PO SCH ×4 (03:32→21:58)
[2017-02-03] MEDS: INSULIN REGULAR 100 UNITS/ML, 3ML VIAL SQ-INSULIN SCH ×3 (03:39→15:08)
[2017-02-03 04:42] LABS: ABG COLLECTION SITE LEFT RADIAL; COLLATERAL CIRCULATION TESTING NORMAL
[2017-02-03 04:48] LABS: BLOOD UREA NITROGEN 6 mg/dL (7-18)
[2017-02-03 04:53] LABS: ASPARTATE AMINO TRANSFERASE 23 U/L (15-37)
[2017-02-03 05:13] LABS: HEMATOCRIT 24.6 % (34.6-47.8); WHITE BLOOD COUNT 11.7 x10^3/uL (3.4-10)
[2017-02-03 05:14] LABS: DIFF TOTAL CELLS COUNTED 100 CELL DIFF
[2017-02-03] MEDS: LEVOTHYROXINE 150 MCG TABLET PO SCH (05:31)
[2017-02-03] MEDS: HEPARIN 5,000 UNITS/ML, 1ML SQ SCH ×3 (05:31→21:57)
[2017-02-03 05:58] LABS: VERIFY COUNTS? YES
[2017-02-03 05:59] LABS: ANISOCYTOSIS 1+; POLYCHROMASIA 1+
[2017-02-03] MEDS ORDERED: MAGNESIUM SULFATE PMX 4GM/100M 100 ML IV ONE (07:00)
[2017-02-03] MEDS: POTASSIUM CHLORIDE 10% 40 MEQ/30 ML UDC PO SCH ×2 (07:28→20:19)
[2017-02-03] MEDS: HYDROCORTISONE 10 MG TABLET PO SCH (07:28)
[2017-02-03] MEDS: POTASSIUM CHLORIDE 10% 40 MEQ/30 ML UDC NG SCH ×2 (09:06→19:14)
[2017-02-03] MEDS: GLIMEPIRIDE 4 MG TABLET PO SCH (09:50)
[2017-02-03] MEDS: RISPERIDONE 1 MG/ML ORAL SOLN NG SCH ×2 (09:50→20:19)
[2017-02-03] MEDS: FUROSEMIDE 40 MG/4 ML IV SCH ×2 (09:50→20:19)
[2017-02-03] MEDS: SENNA/DOCUSATE TABLET PO SCH (09:50)
[2017-02-03] MEDS: LACTOBACILLUS 1GM/ PACKET PO SCH ×3 (09:51→20:19)
[2017-02-03] MEDS: BACITRACIN OINT 500U/GM, 15 GM TP SCH ×3 (09:56→20:20)
[2017-02-03] MEDS: INSULIN DETEMIR 100 UNITS/ML, PEN SQ-INSULIN SCH ×2 (10:11→20:34)
[2017-02-03] MEDS: VANCOMYCIN 1,400 MG in SODIUM CHLORIDE 0.9% 250 ML IV SCH (11:55)
[2017-02-03] MEDS: HYDROCORTISONE 5 MG TABLET PO SCH (17:02)
[2017-02-03] MEDS: FLUCONAZOLE 200 MG/100 ML 100 ML IV SCH (18:24)
[2017-02-03] MEDS: ATORVASTATIN 10 MG TABLET PO SCH (20:19)
[2017-02-03] MEDS: INSULIN ASPART 100 UNITS/ML, PEN SQ-INSULIN SCH (20:31)
[2017-02-04] MEDS: MORPHINE SULFATE 4 MG/ML, 1ML IVPush PRN (00:04)
[2017-02-04] MEDS: VANCOMYCIN 1,400 MG in SODIUM CHLORIDE 0.9% 250 ML IV SCH ×2 (02:49→21:30)
[2017-02-04] MEDS: VANCOMYCIN 50 MG/ML ORAL SUSP PO SCH ×4 (02:50→21:42)
[2017-02-04] MEDS: NYSTATIN 500,000 UNITS/5 ML UDC PO SCH ×4 (02:50→21:30)
[2017-02-04] MEDS: INSULIN ASPART 100 UNITS/ML, PEN SQ-INSULIN SCH ×3 (02:57→15:27)
[2017-02-04] MEDS: MIDAZOLAM HCL 50 MG in SODIUM CHLORIDE 0.9% 240 ML IV PRN ×4 (02:59→21:35)
[2017-02-04 04:28] LABS: ABG COLLECTION SITE RIGHT RADIAL; COLLATERAL CIRCULATION TESTING NORMAL
[2017-02-04 05:25] LABS: HEMATOCRIT 26.4 % (34.6-47.8); HEMOGLOBIN 8.5 g/dL (11.7-16.4); WHITE BLOOD COUNT 9.8 x10^3/uL (3.4-10)
[2017-02-04] MEDS: PIPERACILLIN/TAZO/PMX 4.5GM 100 ML IV SCH ×3 (05:35→17:24)
[2017-02-04] MEDS: LEVOTHYROXINE 150 MCG TABLET PO SCH (05:36)
[2017-02-04] MEDS: HEPARIN 5,000 UNITS/ML, 1ML SQ SCH ×3 (05:36→21:32)
[2017-02-04 05:37] LABS: BLOOD UREA NITROGEN 4 mg/dL (7-18)
[2017-02-04] MEDS: HYDROCORTISONE 10 MG TABLET PO SCH (08:46)
[2017-02-04] MEDS: POTASSIUM CHLORIDE 20 MEQ PACKET PO SCH ×3 (08:47→21:42)
[2017-02-04] MEDS: GLIMEPIRIDE 4 MG TABLET PO SCH (08:47)
[2017-02-04] MEDS: SENNA/DOCUSATE TABLET PO SCH (08:47)
[2017-02-04] MEDS: LACTOBACILLUS 1GM/ PACKET PO SCH ×3 (08:52→21:31)
[2017-02-04] MEDS: RISPERIDONE 1 MG/ML ORAL SOLN NG SCH (08:53)
[2017-02-04] MEDS ORDERED: MAGNESIUM SULFATE PMX 2GM/50ML 50 ML IV ONE (09:00)
[2017-02-04] MEDS: BACITRACIN OINT 500U/GM, 15 GM TP SCH ×3 (09:01→21:36)
[2017-02-04] MEDS: INSULIN DETEMIR 100 UNITS/ML, PEN SQ-INSULIN SCH (09:02)
[2017-02-04] MEDS: ACETAMINOPHEN 325 MG TABLET PO PRN (10:38)
[2017-02-04] MEDS: CARVEDILOL 25 MG TABLET PO SCH (16:59)
[2017-02-04] MEDS: HYDROCORTISONE 5 MG TABLET PO SCH (16:59)
[2017-02-04] MEDS: FLUCONAZOLE 200 MG/100 ML 100 ML IV SCH (18:05)
[2017-02-04] MEDS: REGULAR INSULIN 62.5 UNITS in SODIUM CHLORIDE 0.9% 249.375 ML IV PRN (18:51)
[2017-02-04] MEDS ORDERED: RISPERIDONE 1 MG/ML ORAL SOLN NG SCH (21:00)
[2017-02-04] MEDS: FUROSEMIDE 40 MG/4 ML IV SCH (21:29)
[2017-02-04] MEDS: ATORVASTATIN 10 MG TABLET PO SCH (21:31)
[2017-02-05] MEDS: PIPERACILLIN/TAZO/PMX 4.5GM 100 ML IV SCH ×2 (00:05→04:22)
[2017-02-05] MEDS: MIDAZOLAM HCL 50 MG in SODIUM CHLORIDE 0.9% 240 ML IV PRN (01:38)
[2017-02-05] MEDS: REGULAR INSULIN 62.5 UNITS in SODIUM CHLORIDE 0.9% 249.375 ML IV PRN (01:39)
[2017-02-05 03:25] LABS: HEMATOCRIT 23.9 % (34.6-47.8); HEMOGLOBIN 7.7 g/dL (11.7-16.4); WHITE BLOOD COUNT 8.9 x10^3/uL (3.4-10)
[2017-02-05 03:35] LABS: ASPARTATE AMINO TRANSFERASE 24 U/L (15-37); BLOOD UREA NITROGEN 5 mg/dL (7-18)
[2017-02-05 04:12] LABS: ABG COLLECTION SITE RIGHT RADIAL; COLLATERAL CIRCULATION TESTING NORMAL
[2017-02-05] MEDS: NYSTATIN 500,000 UNITS/5 ML UDC PO SCH ×4 (04:23→22:31)
[2017-02-05] MEDS: VANCOMYCIN 50 MG/ML ORAL SUSP PO SCH ×4 (04:23→22:31)
[2017-02-05] MEDS: LEVOTHYROXINE 150 MCG TABLET PO SCH (04:23)
[2017-02-05] MEDS: CARVEDILOL 25 MG TABLET PO SCH ×2 (04:23→17:28)
[2017-02-05] MEDS: HEPARIN 5,000 UNITS/ML, 1ML SQ SCH ×3 (04:24→22:31)
[2017-02-05] MEDS ORDERED: SODIUM CHLORIDE 0.45% 1,000 ML IV SCH (05:00)
[2017-02-05] MEDS: REGULAR INSULIN 125 UNITS in SODIUM CHLORIDE 0.9% 248.75 ML IV PRN ×3 (05:09→15:26)
[2017-02-05] MEDS: POTASSIUM CHLORIDE 20 MEQ PACKET PO SCH (07:49)
[2017-02-05] MEDS: HYDROCORTISONE 10 MG TABLET PO SCH (07:50)
[2017-02-05] MEDS: ERGOCALCIFEROL 50,000 UNIT CAPSULE PO SCH (09:00)
[2017-02-05] MEDS: BENAZEPRIL 20 MG TABLET PO SCH (09:00)
[2017-02-05] MEDS ORDERED: MAGNESIUM CITRATE 300ML ORAL SOL PO ONE (09:00)
[2017-02-05] MEDS: FUROSEMIDE 40 MG/4 ML IV SCH ×2 (09:00→21:41)
[2017-02-05] MEDS: LACTOBACILLUS 1GM/ PACKET PO SCH ×3 (11:07→21:42)
[2017-02-05] MEDS: SENNA/DOCUSATE TABLET PO SCH (11:08)
[2017-02-05] MEDS: BACITRACIN OINT 500U/GM, 15 GM TP SCH ×3 (11:08→21:42)
[2017-02-05 12:06] LABS: HEMATOCRIT 24.1 % (34.6-47.8); HEMOGLOBIN 7.8 g/dL (11.7-16.4); WHITE BLOOD COUNT 9.3 x10^3/uL (3.4-10)
[2017-02-05 12:21] LABS: ASPARTATE AMINO TRANSFERASE 22 U/L (15-37); BLOOD UREA NITROGEN 6 mg/dL (7-18)
[2017-02-05 13:11] LABS: OCCBLD OBC PASS
[2017-02-05] MEDS: HYDROCORTISONE 5 MG TABLET PO SCH (17:28)
[2017-02-05] MEDS: REGULAR INSULIN 250 UNITS in SODIUM CHLORIDE 0.9% 247.5 ML IV PRN (18:32)
[2017-02-05] MEDS ORDERED: RISPERIDONE 1 MG/ML ORAL SOLN NG SCH (21:00)
[2017-02-05] MEDS: ATORVASTATIN 10 MG TABLET PO SCH (21:42)
[2017-02-06] MEDS: REGULAR INSULIN 250 UNITS in SODIUM CHLORIDE 0.9% 247.5 ML IV PRN ×3 (01:32→16:54)
[2017-02-06] MEDS: ACETAMINOPHEN 325 MG TABLET PO PRN ×3 (02:34→19:48)
[2017-02-06] MEDS: NYSTATIN 500,000 UNITS/5 ML UDC PO SCH ×4 (04:10→22:02)
[2017-02-06] MEDS: VANCOMYCIN 50 MG/ML ORAL SUSP PO SCH ×4 (04:10→22:02)
[2017-02-06 04:21] LABS: ABG COLLECTION SITE RIGHT RADIAL; COLLATERAL CIRCULATION TESTING NORMAL
[2017-02-06 05:18] LABS: HEMATOCRIT 25.6 % (34.6-47.8); HEMOGLOBIN 8.2 g/dL (11.7-16.4); WHITE BLOOD COUNT 9.5 x10^3/uL (3.4-10)
[2017-02-06 05:34] LABS: BLOOD UREA NITROGEN 6 mg/dL (7-18)
[2017-02-06] MEDS: CARVEDILOL 25 MG TABLET PO SCH ×2 (06:17→18:38)
[2017-02-06] MEDS: LEVOTHYROXINE 150 MCG TABLET PO SCH (06:17)
[2017-02-06] MEDS: HEPARIN 5,000 UNITS/ML, 1ML SQ SCH ×3 (06:17→22:02)
[2017-02-06] MEDS: BENAZEPRIL 20 MG TABLET PO SCH (09:00)
[2017-02-06] MEDS: SENNA/DOCUSATE TABLET PO SCH (09:00)
[2017-02-06] MEDS: POTASSIUM CHLORIDE 10% 40 MEQ/30 ML UDC PO SCH ×2 (09:22→21:39)
[2017-02-06] MEDS: LACTOBACILLUS 1GM/ PACKET PO SCH ×3 (09:22→21:39)
[2017-02-06] MEDS: BACITRACIN OINT 500U/GM, 15 GM TP SCH ×3 (09:22→21:39)
[2017-02-06] MEDS: FUROSEMIDE 40 MG/4 ML IV SCH ×2 (09:24→21:39)
[2017-02-06] MEDS: HYDROCORTISONE 10 MG TABLET PO SCH (10:42)
[2017-02-06] MEDS: HYDROCORTISONE 5 MG TABLET PO SCH (18:38)
[2017-02-06] MEDS: ATORVASTATIN 10 MG TABLET PO SCH (21:39)
[2017-02-07] MEDS: REGULAR INSULIN 250 UNITS in SODIUM CHLORIDE 0.9% 247.5 ML IV PRN ×4 (00:16→22:06)
[2017-02-07] MEDS: NYSTATIN 500,000 UNITS/5 ML UDC PO SCH ×4 (04:30→22:05)
[2017-02-07] MEDS: VANCOMYCIN 50 MG/ML ORAL SUSP PO SCH (04:30)
[2017-02-07 05:01] LABS: ABG COLLECTION SITE RIGHT RADIAL; COLLATERAL CIRCULATION TESTING NORMAL
[2017-02-07 05:11] LABS: HEMATOCRIT 25.3 % (34.6-47.8); WHITE BLOOD COUNT 9.5 x10^3/uL (3.4-10)
[2017-02-07 05:46] LABS: BLOOD UREA NITROGEN 10 mg/dL (7-18)
[2017-02-07] MEDS: LEVOTHYROXINE 150 MCG TABLET PO SCH (05:46)
[2017-02-07] MEDS: CARVEDILOL 25 MG TABLET PO SCH ×2 (05:47→17:09)
[2017-02-07] MEDS: HEPARIN 5,000 UNITS/ML, 1ML SQ SCH ×3 (05:52→22:04)
[2017-02-07] MEDS: SENNA/DOCUSATE TABLET PO SCH (09:00)
[2017-02-07] MEDS: FUROSEMIDE 40 MG/4 ML IV SCH ×2 (09:54→21:16)
[2017-02-07] MEDS: HYDROCORTISONE 10 MG TABLET PO SCH ×2 (09:56→10:29)
[2017-02-07] MEDS: LACTOBACILLUS 1GM/ PACKET PO SCH ×3 (10:18→21:16)
[2017-02-07] MEDS: POTASSIUM CHLORIDE 10% 40 MEQ/30 ML UDC PO SCH ×2 (10:19→21:16)
[2017-02-07] MEDS: BENAZEPRIL 20 MG TABLET PO SCH (10:19)
[2017-02-07] MEDS: METOLAZONE 5 MG TABLET PO SCH ×2 (10:20→20:47)
[2017-02-07] MEDS ORDERED: LIDOCAINE 1%, 20ML ONE (11:25)
[2017-02-07] MEDS: BACITRACIN OINT 500U/GM, 15 GM TP SCH ×3 (13:02→21:17)
[2017-02-07] MEDS: ACETAMINOPHEN 325 MG TABLET PO PRN (15:36)
[2017-02-07] MEDS: HYDROCORTISONE 5 MG TABLET PO SCH (17:08)
[2017-02-07] MEDS: ATORVASTATIN 10 MG TABLET PO SCH (21:16)
[2017-02-08] MEDS: NYSTATIN 500,000 UNITS/5 ML UDC PO SCH ×4 (04:02→21:57)
[2017-02-08 04:21] LABS: HEMATOCRIT 25.7 % (34.6-47.8)
[2017-02-08 04:24] LABS: ABG COLLECTION SITE RIGHT RADIAL; COLLATERAL CIRCULATION TESTING NORMAL
[2017-02-08 04:38] LABS: BLOOD UREA NITROGEN 16 mg/dL (7-18)
[2017-02-08] MEDS: REGULAR INSULIN 250 UNITS in SODIUM CHLORIDE 0.9% 247.5 ML IV PRN ×4 (05:00→21:00)
[2017-02-08] MEDS: CARVEDILOL 25 MG TABLET PO SCH ×2 (05:47→16:50)
[2017-02-08] MEDS: HEPARIN 5,000 UNITS/ML, 1ML SQ SCH ×3 (05:47→22:48)
[2017-02-08] MEDS: LEVOTHYROXINE 150 MCG TABLET PO SCH (05:47)
[2017-02-08] MEDS: FUROSEMIDE 40 MG/4 ML IV SCH ×2 (08:02→20:09)
[2017-02-08] MEDS: BENAZEPRIL 20 MG TABLET PO SCH (08:02)
[2017-02-08] MEDS: POTASSIUM CHLORIDE 10% 40 MEQ/30 ML UDC PO SCH ×2 (08:02→20:49)
[2017-02-08] MEDS: LACTOBACILLUS 1GM/ PACKET PO SCH ×3 (08:02→20:59)
[2017-02-08] MEDS: HYDROCORTISONE 10 MG TABLET PO SCH (08:02)
[2017-02-08] MEDS: BACITRACIN OINT 500U/GM, 15 GM TP SCH ×3 (08:03→20:49)
[2017-02-08] MEDS: SENNA/DOCUSATE TABLET PO SCH (08:03)
[2017-02-08] MEDS: METOLAZONE 5 MG TABLET PO SCH ×2 (08:03→20:09)
[2017-02-08] MEDS: FAMOTIDINE 20 MG/2 ML IVPush SCH ×2 (10:20→20:49)
[2017-02-08] MEDS ORDERED: LIDOCAINE-MPF 1%, 2ML ENDO PRN (15:00)
[2017-02-08] MEDS ORDERED: POLYETHYLENE GLYCOL 17 GM PACKET PO PRN (15:00)
[2017-02-08] MEDS ORDERED: BISACODYL 10 MG SUPP PR PRN (15:00)
[2017-02-08] MEDS ORDERED: LACTULOSE 20 GM/30 ML UDC NG PRN (15:00)
[2017-02-08] MEDS ORDERED: ONDANSETRON 2MG/ML, 2ML IVPush PRN (15:00)
[2017-02-08] MEDS: HYDROCORTISONE 5 MG TABLET PO SCH (17:00)
[2017-02-08] MEDS: ACETAMINOPHEN 325 MG TABLET PO PRN ×2 (18:14→23:38)
[2017-02-08] MEDS ORDERED: SODIUM CHLORIDE 0.9% 1,000ML IVBOLUS ONE (20:30)
[2017-02-08] MEDS: ATORVASTATIN 10 MG TABLET PO SCH (20:49)
[2017-02-08] MEDS: NOREPINEPHRINE 4 MG in SODIUM CHLORIDE 0.9% 246 ML IV PRN (22:07)
[2017-02-09] MEDS: NYSTATIN 500,000 UNITS/5 ML UDC PO SCH ×4 (03:59→21:16)
[2017-02-09] MEDS: REGULAR INSULIN 250 UNITS in SODIUM CHLORIDE 0.9% 247.5 ML IV PRN ×5 (04:11→22:01)
[2017-02-09 04:37] LABS: ABG COLLECTION SITE RIGHT RADIAL; COLLATERAL CIRCULATION TESTING NORMAL
[2017-02-09 04:41] LABS: HEMATOCRIT 24.7 % (34.6-47.8); HEMOGLOBIN 7.7 g/dL (11.7-16.4); WHITE BLOOD COUNT 10.1 x10^3/uL (3.4-10)
[2017-02-09 04:46] LABS: BLOOD UREA NITROGEN 21 mg/dL (7-18)
[2017-02-09] MEDS: HEPARIN 5,000 UNITS/ML, 1ML SQ SCH ×3 (05:35→21:16)
[2017-02-09] MEDS: CARVEDILOL 25 MG TABLET PO SCH ×2 (05:35→17:45)
[2017-02-09] MEDS: LEVOTHYROXINE 150 MCG TABLET PO SCH (05:35)
[2017-02-09] MEDS: METOLAZONE 5 MG TABLET PO SCH ×2 (09:00→21:07)
[2017-02-09] MEDS: FUROSEMIDE 40 MG/4 ML IV SCH ×2 (09:00→21:15)
[2017-02-09] MEDS: SENNA/DOCUSATE TABLET PO SCH (09:00)
[2017-02-09] MEDS: BENAZEPRIL 20 MG TABLET PO SCH (09:00)
[2017-02-09] MEDS: LACTOBACILLUS 1GM/ PACKET PO SCH ×3 (09:26→21:07)
[2017-02-09] MEDS: FAMOTIDINE 20 MG/2 ML IVPush SCH ×2 (09:26→21:15)
[2017-02-09] MEDS: HYDROCORTISONE 100 MG INJ. IV SCH ×3 (09:26→21:15)
[2017-02-09] MEDS: POTASSIUM CHLORIDE 10% 40 MEQ/30 ML UDC PO SCH ×2 (09:27→21:15)
[2017-02-09] MEDS: BACITRACIN OINT 500U/GM, 15 GM TP SCH ×3 (09:27→21:16)
[2017-02-09] MEDS: FLUDROCORTISONE 0.1 MG TABLET PO SCH (12:30)
[2017-02-09] MEDS: NOREPINEPHRINE 4 MG in SODIUM CHLORIDE 0.9% 246 ML IV PRN (13:48)
[2017-02-09] MEDS: ACETAMINOPHEN 325 MG TABLET PO PRN ×2 (13:48→23:23)
[2017-02-09] MEDS ORDERED: ALBUTEROL/IPRATROPIUM 2.5MG/0.5MG, 3 ML ONE (16:54)
[2017-02-09] MEDS ORDERED: ALBUTEROL/IPRATROPIUM 2.5MG/0.5MG, 3 ML NPPB PRN (17:00)
[2017-02-09] MEDS ORDERED: FUROSEMIDE 40 MG/4 ML IV ONE (17:00)
[2017-02-09] MEDS: INSULIN DETEMIR 100 UNITS/ML, PEN SQ-INSULIN SCH (18:26)
[2017-02-09] MEDS: LEVOTHYROXINE 100 MCG INJ IVPush SCH (18:27)
[2017-02-09] MEDS: ATORVASTATIN 10 MG TABLET PO SCH (21:15)
[2017-02-10] MEDS: SODIUM CHLORIDE 0.9% IV PRN ×4 (01:32→19:40)
[2017-02-10] MEDS: REGULAR INSULIN IV PRN ×4 (01:32→19:40)
[2017-02-10] MEDS: HYDROCORTISONE 100 MG INJ. IV SCH ×3 (02:28→18:36)
[2017-02-10] MEDS: NYSTATIN 500,000 UNITS/5 ML UDC PO SCH ×4 (03:27→21:34)
[2017-02-10 04:37] LABS: ABG COLLECTION SITE RIGHT RADIAL; COLLATERAL CIRCULATION TESTING NORMAL
[2017-02-10 04:59] LABS: HEMATOCRIT 25.6 % (34.6-47.8)
[2017-02-10 05:13] LABS: ASPARTATE AMINO TRANSFERASE 46 U/L (15-37); BLOOD UREA NITROGEN 28 mg/dL (7-18)
[2017-02-10] MEDS: INSULIN DETEMIR 100 UNITS/ML, PEN SQ-INSULIN SCH (05:45)
[2017-02-10] MEDS: CARVEDILOL 25 MG TABLET PO SCH ×2 (05:45→18:36)
[2017-02-10] MEDS: HEPARIN 5,000 UNITS/ML, 1ML SQ SCH ×3 (05:48→21:35)
[2017-02-10] MEDS ORDERED: INSULIN DETEMIR 100 UNITS/ML, PEN SQ-INSULIN ONE ×2 (08:30→16:00)
[2017-02-10] MEDS: BENAZEPRIL 20 MG TABLET PO SCH (09:02)
[2017-02-10] MEDS: FLUDROCORTISONE 0.1 MG TABLET PO SCH (09:02)
[2017-02-10] MEDS: METOLAZONE 5 MG TABLET PO SCH ×2 (09:03→20:42)
[2017-02-10] MEDS: SENNA/DOCUSATE TABLET PO SCH (09:03)
[2017-02-10] MEDS: LACTOBACILLUS 1GM/ PACKET PO SCH ×3 (09:03→20:42)
[2017-02-10] MEDS: BACITRACIN OINT 500U/GM, 15 GM TP SCH ×3 (09:03→20:44)
[2017-02-10] MEDS: LEVOTHYROXINE 100 MCG INJ IVPush SCH (09:03)
[2017-02-10] MEDS: POTASSIUM CHLORIDE 10% 40 MEQ/30 ML UDC PO SCH ×2 (09:03→20:43)
[2017-02-10] MEDS: FAMOTIDINE 20 MG/2 ML IVPush SCH ×2 (09:03→20:42)
[2017-02-10] MEDS: FUROSEMIDE 40 MG/4 ML IV SCH ×2 (09:04→20:44)
[2017-02-10] MEDS: ACETAMINOPHEN 325 MG TABLET PO PRN ×2 (15:17→21:30)
[2017-02-10] MEDS ORDERED: INSULIN DETEMIR 100 UNITS/ML, PEN SQ-INSULIN SCH ×2 (18:00→21:00)
[2017-02-10] MEDS: ATORVASTATIN 10 MG TABLET PO SCH (20:42)
[2017-02-10] MEDS: VANCOMYCIN 50 MG/ML ORAL SUSP PO SCH (20:43)
[2017-02-10] MEDS: MEROPENEM 1 GM in SODIUM CHLORIDE 0.9% 100 ML IV SCH (21:34)
[2017-02-11] MEDS: SODIUM CHLORIDE 0.9% IV PRN ×6 (00:14→22:31)
[2017-02-11] MEDS: REGULAR INSULIN IV PRN ×6 (00:14→22:31)
[2017-02-11] MEDS: ACETAMINOPHEN 325 MG TABLET PO PRN ×2 (02:27→21:45)
[2017-02-11] MEDS: HYDROCORTISONE 100 MG INJ. IV SCH ×3 (02:28→18:09)
[2017-02-11 04:17] LABS: ABG COLLECTION SITE RIGHT RADIAL; COLLATERAL CIRCULATION TESTING NORMAL
[2017-02-11] MEDS: MEROPENEM 1 GM in SODIUM CHLORIDE 0.9% 100 ML IV SCH ×3 (05:10→21:40)
[2017-02-11] MEDS: NYSTATIN 500,000 UNITS/5 ML UDC PO SCH ×4 (05:11→21:40)
[2017-02-11] MEDS: CARVEDILOL 25 MG TABLET PO SCH ×2 (05:11→18:09)
[2017-02-11] MEDS: HEPARIN 5,000 UNITS/ML, 1ML SQ SCH ×3 (05:12→21:40)
[2017-02-11 05:30] LABS: BLOOD UREA NITROGEN 36 mg/dL (7-18)
[2017-02-11 05:37] LABS: HEMATOCRIT 24.9 % (34.6-47.8); HEMOGLOBIN 7.9 g/dL (11.7-16.4)
[2017-02-11] MEDS: SENNA/DOCUSATE TABLET PO SCH (08:53)
[2017-02-11] MEDS: BENAZEPRIL 20 MG TABLET PO SCH (09:37)
[2017-02-11] MEDS: FAMOTIDINE 20 MG/2 ML IVPush SCH ×2 (09:37→21:42)
[2017-02-11] MEDS: METOLAZONE 5 MG TABLET PO SCH ×2 (09:37→21:40)
[2017-02-11] MEDS: BACITRACIN OINT 500U/GM, 15 GM TP SCH ×3 (09:37→21:40)
[2017-02-11] MEDS: VANCOMYCIN 50 MG/ML ORAL SUSP PO SCH ×2 (09:37→21:40)
[2017-02-11] MEDS: FLUDROCORTISONE 0.1 MG TABLET PO SCH (09:37)
[2017-02-11] MEDS: POTASSIUM CHLORIDE 10% 40 MEQ/30 ML UDC PO SCH ×2 (09:37→21:40)
[2017-02-11] MEDS: FUROSEMIDE 40 MG/4 ML IV SCH ×2 (09:38→21:40)
[2017-02-11] MEDS: INSULIN DETEMIR 100 UNITS/ML, PEN SQ-INSULIN SCH ×2 (09:38→21:00)
[2017-02-11] MEDS: LEVOTHYROXINE 100 MCG INJ IVPush SCH (09:39)
[2017-02-11] MEDS: LACTOBACILLUS CHEW TABLET PO SCH ×3 (14:20→21:39)
[2017-02-11] MEDS: ATORVASTATIN 10 MG TABLET PO SCH (21:40)
[2017-02-11] MEDS ORDERED: INSULIN DETEMIR 100 UNITS/ML, PEN SQ-INSULIN ONE (22:00)
[2017-02-12] MEDS: HYDROCORTISONE 100 MG INJ. IV SCH ×3 (02:26→17:50)
[2017-02-12] MEDS: REGULAR INSULIN IV PRN (02:28)
[2017-02-12] MEDS: SODIUM CHLORIDE 0.9% IV PRN (02:28)
[2017-02-12 04:33] LABS: ABG COLLECTION SITE LEFT RADIAL; COLLATERAL CIRCULATION TESTING NORMAL
[2017-02-12] MEDS: NYSTATIN 500,000 UNITS/5 ML UDC PO SCH ×4 (04:37→20:49)
[2017-02-12] MEDS: MEROPENEM 1 GM in SODIUM CHLORIDE 0.9% 100 ML IV SCH ×3 (04:39→20:45)
[2017-02-12 05:22] LABS: HEMATOCRIT 24.5 % (34.6-47.8); HEMOGLOBIN 7.7 g/dL (11.7-16.4)
[2017-02-12 05:23] LABS: BLOOD UREA NITROGEN 35 mg/dL (7-18)
[2017-02-12] MEDS: CARVEDILOL 25 MG TABLET PO SCH ×2 (05:41→17:50)
[2017-02-12] MEDS: HEPARIN 5,000 UNITS/ML, 1ML SQ SCH ×2 (05:41→16:40)
[2017-02-12] MEDS ORDERED: POTASSIUM CHLORIDE 20 MEQ TAB.ER.PRT PO ONE (07:30)
[2017-02-12] MEDS: POTASSIUM CHLORIDE 10% 40 MEQ/30 ML UDC PO SCH ×2 (07:37→20:47)
[2017-02-12] MEDS: FAMOTIDINE 20 MG/2 ML IVPush SCH ×2 (08:48→20:46)
[2017-02-12] MEDS: ERGOCALCIFEROL 50,000 UNIT CAPSULE PO SCH (08:48)
[2017-02-12] MEDS: BACITRACIN OINT 500U/GM, 15 GM TP SCH ×3 (08:48→20:49)
[2017-02-12] MEDS: FLUDROCORTISONE 0.1 MG TABLET PO SCH (08:49)
[2017-02-12] MEDS: LEVOTHYROXINE 100 MCG INJ IVPush SCH (08:49)
[2017-02-12] MEDS: LACTOBACILLUS CHEW TABLET PO SCH ×3 (08:49→20:48)
[2017-02-12] MEDS: SENNA/DOCUSATE TABLET PO SCH (08:49)
[2017-02-12] MEDS: BENAZEPRIL 20 MG TABLET PO SCH (08:49)
[2017-02-12] MEDS: VANCOMYCIN 50 MG/ML ORAL SUSP PO SCH ×2 (08:49→20:48)
[2017-02-12] MEDS: INSULIN DETEMIR 100 UNITS/ML, PEN SQ-INSULIN SCH ×2 (08:50→20:48)
[2017-02-12] MEDS: METOLAZONE 5 MG TABLET PO SCH ×2 (08:50→20:48)
[2017-02-12] MEDS: FUROSEMIDE 20 MG/2 ML IV SCH ×2 (08:53→20:45)
[2017-02-12] MEDS: ATORVASTATIN 10 MG TABLET PO SCH (20:47)
[2017-02-12] MEDS: MORPHINE SULFATE 4 MG/ML, 1ML IVPush PRN (23:47)
[2017-02-13] MEDS: HEPARIN 5,000 UNITS/ML, 1ML SQ SCH ×4 (00:47→23:57)
[2017-02-13] MEDS: HYDROCORTISONE 100 MG INJ. IV SCH ×3 (02:37→18:30)
[2017-02-13] MEDS: NYSTATIN 500,000 UNITS/5 ML UDC PO SCH ×4 (03:36→23:56)
[2017-02-13] MEDS: MEROPENEM 1 GM in SODIUM CHLORIDE 0.9% 100 ML IV SCH ×3 (04:30→20:40)
[2017-02-13 04:58] LABS: ABG COLLECTION SITE RIGHT RADIAL; COLLATERAL CIRCULATION TESTING NORMAL
[2017-02-13 05:18] LABS: BLOOD UREA NITROGEN 43 mg/dL (7-18)
[2017-02-13 05:19] LABS: HEMATOCRIT 24.6 % (34.6-47.8); HEMOGLOBIN 7.7 g/dL (11.7-16.4); WHITE BLOOD COUNT 6.3 x10^3/uL (3.4-10)
[2017-02-13] MEDS: CARVEDILOL 25 MG TABLET PO SCH ×2 (05:51→18:30)
[2017-02-13 05:55] LABS: DIFF TOTAL CELLS COUNTED 100 CELL DIFF
[2017-02-13 05:57] LABS: VERIFY COUNTS? YES
[2017-02-13 05:58] LABS: ANISOCYTOSIS 1+; POLYCHROMASIA 1+
[2017-02-13 05:59] LABS: STOMATOCYTES 1+
[2017-02-13 06:00] LABS: MICROCYTOSIS 1+
[2017-02-13] MEDS: VANCOMYCIN 50 MG/ML ORAL SUSP PO SCH ×2 (08:27→20:39)
[2017-02-13] MEDS: BENAZEPRIL 20 MG TABLET PO SCH (08:27)
[2017-02-13] MEDS: LACTOBACILLUS CHEW TABLET PO SCH ×3 (08:28→20:40)
[2017-02-13] MEDS: FUROSEMIDE 20 MG/2 ML IV SCH (08:28)
[2017-02-13] MEDS: FAMOTIDINE 20 MG/2 ML IVPush SCH ×2 (08:28→20:40)
[2017-02-13] MEDS: METOLAZONE 5 MG TABLET PO SCH ×2 (08:28→20:40)
[2017-02-13] MEDS: FLUDROCORTISONE 0.1 MG TABLET PO SCH (08:28)
[2017-02-13] MEDS: SENNA/DOCUSATE TABLET PO SCH (08:29)
[2017-02-13] MEDS: POTASSIUM CHLORIDE 10% 40 MEQ/30 ML UDC PO SCH ×2 (08:29→20:40)
[2017-02-13] MEDS: LEVOTHYROXINE 100 MCG INJ IVPush SCH (08:29)
[2017-02-13] MEDS: BACITRACIN OINT 500U/GM, 15 GM TP SCH ×3 (08:29→20:41)
[2017-02-13] MEDS: INSULIN DETEMIR 100 UNITS/ML, PEN SQ-INSULIN SCH ×2 (08:32→20:43)
[2017-02-13] MEDS ORDERED: ALBUTEROL/IPRATROPIUM 2.5MG/0.5MG, 3 ML NPPB PRN (11:30)
[2017-02-13] MEDS: ALBUMIN HUMAN 25% 100 ML IV SCH ×2 (12:26→18:30)
[2017-02-13] MEDS: ATORVASTATIN 10 MG TABLET PO SCH (20:40)
[2017-02-13] MEDS ORDERED: FUROSEMIDE 20 MG/2 ML IV SCH (21:00)
[2017-02-14] MEDS: HYDROCORTISONE 100 MG INJ. IV SCH ×3 (02:14→17:42)
[2017-02-14] MEDS: ALBUMIN HUMAN 25% 100 ML IV SCH ×3 (02:14→17:42)
[2017-02-14 04:12] LABS: ABG COLLECTION SITE RIGHT RADIAL; COLLATERAL CIRCULATION TESTING NORMAL
[2017-02-14 04:14] LABS: HEMATOCRIT 24.7 % (34.6-47.8); HEMOGLOBIN 7.7 g/dL (11.7-16.4); WHITE BLOOD COUNT 5.3 x10^3/uL (3.4-10)
[2017-02-14 04:24] LABS: BLOOD UREA NITROGEN 45 mg/dL (7-18)
[2017-02-14 04:47] LABS: DIFF TOTAL CELLS COUNTED 100 CELL DIFF
[2017-02-14 04:53] LABS: ANISOCYTOSIS 1+; VERIFY COUNTS? YES
[2017-02-14 04:54] LABS: MICROCYTOSIS 1+; POLYCHROMASIA 1+
[2017-02-14 04:56] LABS: LARGE PLATELETS 1+; STOMATOCYTES 1+
[2017-02-14] MEDS: NYSTATIN 500,000 UNITS/5 ML UDC PO SCH (05:28)
[2017-02-14] MEDS: MEROPENEM 1 GM in SODIUM CHLORIDE 0.9% 100 ML IV SCH ×3 (05:28→21:07)
[2017-02-14] MEDS: CARVEDILOL 25 MG TABLET PO SCH ×2 (05:28→17:41)
[2017-02-14] MEDS: SODIUM CHLORIDE 0.9% IV PRN (05:29)
[2017-02-14] MEDS: REGULAR INSULIN IV PRN (05:29)
[2017-02-14] MEDS: SENNA/DOCUSATE TABLET PO SCH (08:40)
[2017-02-14] MEDS: BENAZEPRIL 20 MG TABLET PO SCH (09:00)
[2017-02-14] MEDS: METOLAZONE 5 MG TABLET PO SCH ×2 (09:31→21:08)
[2017-02-14] MEDS: LEVOTHYROXINE 150 MCG TABLET PO SCH (09:31)
[2017-02-14] MEDS: FLUDROCORTISONE 0.1 MG TABLET PO SCH (09:31)
[2017-02-14] MEDS: HEPARIN 5,000 UNITS/ML, 1ML SQ SCH ×2 (09:31→17:41)
[2017-02-14] MEDS: LACTOBACILLUS CHEW TABLET PO SCH ×3 (09:31→21:08)
[2017-02-14] MEDS: POTASSIUM CHLORIDE 10% 40 MEQ/30 ML UDC PO SCH ×2 (09:32→21:08)
[2017-02-14] MEDS: BUMETANIDE 0.25 MG/ML, 4ML IV SCH ×2 (09:32→21:00)
[2017-02-14] MEDS: VANCOMYCIN 50 MG/ML ORAL SUSP PO SCH ×2 (09:32→21:08)
[2017-02-14] MEDS: BACITRACIN OINT 500U/GM, 15 GM TP SCH ×3 (09:45→21:08)
[2017-02-14] MEDS: INSULIN DETEMIR 100 UNITS/ML, PEN SQ-INSULIN SCH ×3 (09:50→21:09)
[2017-02-14] MEDS: ATORVASTATIN 10 MG TABLET PO SCH (21:08)
[2017-02-15] MEDS: HEPARIN 5,000 UNITS/ML, 1ML SQ SCH ×3 (00:12→16:24)
[2017-02-15] MEDS: ALBUMIN HUMAN 25% 100 ML IV SCH ×3 (02:01→18:16)
[2017-02-15] MEDS: HYDROCORTISONE 100 MG INJ. IV SCH (02:04)
[2017-02-15] MEDS: MEROPENEM 1 GM in SODIUM CHLORIDE 0.9% 100 ML IV SCH ×3 (04:21→20:29)
[2017-02-15 05:05] LABS: BLOOD UREA NITROGEN 47 mg/dL (7-18)
[2017-02-15 05:06] LABS: HEMATOCRIT 25.7 % (34.6-47.8); HEMOGLOBIN 8.1 g/dL (11.7-16.4); WHITE BLOOD COUNT 4.9 x10^3/uL (3.4-10)
[2017-02-15] MEDS: CARVEDILOL 25 MG TABLET PO SCH ×2 (05:54→18:00)
[2017-02-15] MEDS: LEVOTHYROXINE 150 MCG TABLET PO SCH (05:55)
[2017-02-15 06:12] LABS: DIFF TOTAL CELLS COUNTED 100 CELL DIFF
[2017-02-15 06:22] LABS: ANISOCYTOSIS 1+; POIKILOCYTOSIS 1+; VERIFY COUNTS? YES
[2017-02-15 06:23] LABS: HYPOCHROMIA 1+; MICROCYTOSIS 1+; POLYCHROMASIA 1+
[2017-02-15] MEDS: FLUDROCORTISONE 0.1 MG TABLET PO SCH (08:36)
[2017-02-15] MEDS: LACTOBACILLUS CHEW TABLET PO SCH ×3 (08:36→20:30)
[2017-02-15] MEDS: BENAZEPRIL 20 MG TABLET PO SCH (08:37)
[2017-02-15] MEDS: VANCOMYCIN 50 MG/ML ORAL SUSP PO SCH ×2 (08:37→20:30)
[2017-02-15] MEDS: METOLAZONE 5 MG TABLET PO SCH ×2 (08:37→20:30)
[2017-02-15] MEDS: POTASSIUM CHLORIDE 10% 40 MEQ/30 ML UDC PO SCH ×2 (08:37→20:29)
[2017-02-15] MEDS: BUMETANIDE 0.25 MG/ML, 4ML IV SCH ×2 (08:39→20:30)
[2017-02-15] MEDS: BACITRACIN OINT 500U/GM, 15 GM TP SCH ×3 (08:44→20:31)
[2017-02-15] MEDS: INSULIN DETEMIR 100 UNITS/ML, PEN SQ-INSULIN SCH ×3 (08:44→20:33)
[2017-02-15] MEDS: ACETAMINOPHEN 325 MG TABLET PO PRN (13:06)
[2017-02-15 16:20] LABS: ABG COLLECTION SITE LEFT RADIAL; COLLATERAL CIRCULATION TESTING NORMAL
[2017-02-15 16:36] LABS: IS PT STATUS REG ER OR PRE ER? NO
[2017-02-15] MEDS ORDERED: VANCOMYCIN PER PHARMACY MC PRN (17:30)
[2017-02-15] MEDS ORDERED: PHARMACOKINETIC MONITORING MC PRN (18:00)
[2017-02-15] MEDS ORDERED: PHARMACOKINETIC CONSULTATION MC ONE (18:00)
[2017-02-15] MEDS: VANCOMYCIN 1,400 MG in SODIUM CHLORIDE 0.9% 250 ML IV SCH (19:04)
[2017-02-15] MEDS ORDERED: BISACODYL 10 MG SUPP PR PRN (20:00)
[2017-02-15] MEDS ORDERED: POLYETHYLENE GLYCOL 17 GM PACKET PO PRN (20:00)
[2017-02-15] MEDS ORDERED: LACTULOSE 20 GM/30 ML UDC NG PRN (20:00)
[2017-02-15] MEDS ORDERED: ALBUTEROL/IPRATROPIUM 2.5MG/0.5MG, 3 ML NPPB PRN (20:00)
[2017-02-15] MEDS: ATORVASTATIN 10 MG TABLET PO SCH (20:30)
[2017-02-15 21:51] LABS: IS PT STATUS REG ER OR PRE ER? NO
[2017-02-15] MEDS ORDERED: SODIUM CHLORIDE 0.9%, 500ML IVBOLUS ONE (22:30)
[2017-02-16] MEDS: HEPARIN 5,000 UNITS/ML, 1ML SQ SCH ×3 (00:12→18:21)
[2017-02-16] MEDS ORDERED: HYDROCORTISONE 100 MG INJ. IV SCH (02:00)
[2017-02-16] MEDS: ALBUMIN HUMAN 25% 100 ML IV SCH ×3 (02:05→18:21)
[2017-02-16] MEDS: ONDANSETRON 2MG/ML, 2ML IVPush PRN (02:11)
[2017-02-16] MEDS ORDERED: SODIUM CHLORIDE 0.9%, 500ML IVBOLUS ONE (03:30)
[2017-02-16] MEDS: MEROPENEM 1 GM in SODIUM CHLORIDE 0.9% 100 ML IV SCH ×3 (04:09→20:01)
[2017-02-16 04:49] LABS: BLOOD UREA NITROGEN 50 mg/dL (7-18)
[2017-02-16 04:57] LABS: HEMATOCRIT 24.4 % (34.6-47.8); HEMOGLOBIN 7.7 g/dL (11.7-16.4); WHITE BLOOD COUNT 6.2 x10^3/uL (3.4-10)
[2017-02-16] MEDS: LEVOTHYROXINE 150 MCG TABLET PO SCH (05:39)
[2017-02-16] MEDS: CARVEDILOL 25 MG TABLET PO SCH (05:39)
[2017-02-16] MEDS: VANCOMYCIN 1,400 MG in SODIUM CHLORIDE 0.9% 250 ML IV SCH (05:39)
[2017-02-16 05:55] LABS: DIFF TOTAL CELLS COUNTED 100 CELL DIFF
[2017-02-16 05:56] LABS: ANISOCYTOSIS 1+; OVALOCYTES 1+; POLYCHROMASIA 1+; VERIFY COUNTS? YES
[2017-02-16 05:57] LABS: STOMATOCYTES 1+
[2017-02-16 05:58] LABS: HYPOCHROMIA 1+
[2017-02-16 06:01] VITALS: BP 114/43
[2017-02-16] MEDS: LACTOBACILLUS CHEW TABLET PO SCH ×3 (09:23→21:20)
[2017-02-16] MEDS: FLUDROCORTISONE 0.1 MG TABLET PO SCH (09:23)
[2017-02-16] MEDS: METOLAZONE 5 MG TABLET PO SCH ×2 (09:24→21:20)
[2017-02-16] MEDS: VANCOMYCIN 50 MG/ML ORAL SUSP PO SCH ×2 (09:24→21:20)
[2017-02-16] MEDS: POTASSIUM CHLORIDE 10% 40 MEQ/30 ML UDC PO SCH ×2 (09:24→21:20)
[2017-02-16] MEDS: BACITRACIN OINT 500U/GM, 15 GM TP SCH ×3 (09:26→21:22)
[2017-02-16] MEDS: INSULIN DETEMIR 100 UNITS/ML, PEN SQ-INSULIN SCH ×3 (09:27→21:22)
[2017-02-16] MEDS: HYDROCORTISONE 100 MG INJ. IV SCH ×2 (10:25→18:20)
[2017-02-16] MEDS: FUROSEMIDE 100 MG in SODIUM CHLORIDE 0.9% 90 ML IV SCH (10:28)
[2017-02-16] MEDS: ATORVASTATIN 10 MG TABLET PO SCH (21:20)
[2017-02-17] MEDS: HEPARIN 5,000 UNITS/ML, 1ML SQ SCH ×3 (00:15→18:06)
[2017-02-17] MEDS: VANCOMYCIN 1,400 MG in SODIUM CHLORIDE 0.9% 250 ML IV SCH ×2 (00:16→17:49)
[2017-02-17] MEDS: HYDROCORTISONE 100 MG INJ. IV SCH ×3 (02:30→17:49)
[2017-02-17] MEDS: ALBUMIN HUMAN 25% 100 ML IV SCH ×3 (02:30→18:05)
[2017-02-17] MEDS: FUROSEMIDE 100 MG in SODIUM CHLORIDE 0.9% 90 ML IV SCH (02:58)
[2017-02-17] MEDS: MEROPENEM 1 GM in SODIUM CHLORIDE 0.9% 100 ML IV SCH ×3 (04:47→20:03)
[2017-02-17 05:28] LABS: HEMATOCRIT 25.1 % (34.6-47.8); HEMOGLOBIN 7.8 g/dL (11.7-16.4); WHITE BLOOD COUNT 5.6 x10^3/uL (3.4-10)
[2017-02-17] MEDS: LEVOTHYROXINE 150 MCG TABLET PO SCH (05:41)
[2017-02-17 05:45] LABS: BLOOD UREA NITROGEN 48 mg/dL (7-18)
[2017-02-17] MEDS: INSULIN DETEMIR 100 UNITS/ML, PEN SQ-INSULIN SCH ×3 (09:00→20:45)
[2017-02-17] MEDS: LACTOBACILLUS CHEW TABLET PO SCH ×3 (09:15→20:54)
[2017-02-17] MEDS: POTASSIUM CHLORIDE 10% 40 MEQ/30 ML UDC PO SCH ×2 (09:16→20:54)
[2017-02-17] MEDS: VANCOMYCIN 50 MG/ML ORAL SUSP PO SCH ×2 (09:16→20:54)
[2017-02-17] MEDS: METOLAZONE 5 MG TABLET PO SCH ×2 (09:17→20:54)
[2017-02-17] MEDS: FLUDROCORTISONE 0.1 MG TABLET PO SCH (09:23)
[2017-02-17] MEDS: BACITRACIN OINT 500U/GM, 15 GM TP SCH ×3 (11:36→20:45)
[2017-02-17] MEDS: ATORVASTATIN 10 MG TABLET PO SCH (20:54)
[2017-02-18] MEDS: FUROSEMIDE 100 MG in SODIUM CHLORIDE 0.9% 90 ML IV SCH ×2 (00:10→20:30)
[2017-02-18] MEDS: HEPARIN 5,000 UNITS/ML, 1ML SQ SCH ×3 (00:10→17:19)
[2017-02-18] MEDS: ALBUMIN HUMAN 25% 100 ML IV SCH ×3 (01:45→17:24)
[2017-02-18] MEDS: MEROPENEM 1 GM in SODIUM CHLORIDE 0.9% 100 ML IV SCH ×2 (04:30→12:54)
[2017-02-18] MEDS: LEVOTHYROXINE 150 MCG TABLET PO SCH (05:35)
[2017-02-18] MEDS: FLUDROCORTISONE 0.1 MG TABLET PO SCH (09:37)
[2017-02-18] MEDS: POTASSIUM CHLORIDE 10% 40 MEQ/30 ML UDC PO SCH ×2 (09:37→21:28)
[2017-02-18] MEDS: LACTOBACILLUS CHEW TABLET PO SCH ×3 (09:37→21:47)
[2017-02-18] MEDS: BACITRACIN OINT 500U/GM, 15 GM TP SCH ×3 (09:38→21:30)
[2017-02-18] MEDS: METOLAZONE 5 MG TABLET PO SCH ×2 (09:38→21:29)
[2017-02-18] MEDS: VANCOMYCIN 50 MG/ML ORAL SUSP PO SCH ×2 (09:38→21:28)
[2017-02-18] MEDS: CARVEDILOL 25 MG TABLET PO SCH ×2 (09:39→17:26)
[2017-02-18] MEDS: BUPROPION 75 MG TABLET PO SCH ×2 (10:00→21:29)
[2017-02-18] MEDS: INSULIN DETEMIR 100 UNITS/ML, PEN SQ-INSULIN SCH ×3 (10:12→21:35)
[2017-02-18 11:14] LABS: BLOOD UREA NITROGEN 42 mg/dL (7-18)
[2017-02-18 13:42] LABS: HEMATOCRIT 26.5 % (34.6-47.8); HEMOGLOBIN 8.4 g/dL (11.7-16.4); WHITE BLOOD COUNT 5.4 x10^3/uL (3.4-10)
[2017-02-18] MEDS: MIDAZOLAM 1 MG/ML, 2ML IVPush PRN (15:00)
[2017-02-18 16:35] LABS: ABG COLLECTION SITE RIGHT RADIAL; COLLATERAL CIRCULATION TESTING NORMAL
[2017-02-18 18:36] LABS: ABG COLLECTION SITE RIGHT RADIAL; COLLATERAL CIRCULATION TESTING NORMAL
[2017-02-18] MEDS: ERTAPENEM 1 GM in SODIUM CHLORIDE 0.9% 50 ML IV SCH (21:26)
[2017-02-18] MEDS: HYDROCORTISONE 100 MG INJ. IV SCH (21:27)
[2017-02-18] MEDS: ATORVASTATIN 10 MG TABLET PO SCH (21:27)
[2017-02-19] MEDS: HEPARIN 5,000 UNITS/ML, 1ML SQ SCH ×4 (00:26→23:52)
[2017-02-19] MEDS: ALBUMIN HUMAN 25% 100 ML IV SCH ×3 (02:19→18:28)
[2017-02-19] MEDS: MIDAZOLAM 1 MG/ML, 2ML IVPush PRN (02:27)
[2017-02-19 04:37] LABS: HEMATOCRIT 26.2 % (34.6-47.8); WHITE BLOOD COUNT 5.6 x10^3/uL (3.4-10)
[2017-02-19 04:51] LABS: BLOOD UREA NITROGEN 40 mg/dL (7-18)
[2017-02-19 05:42] LABS: ABG COLLECTION SITE RIGHT RADIAL; COLLATERAL CIRCULATION TESTING NORMAL
[2017-02-19] MEDS: CARVEDILOL 25 MG TABLET PO SCH ×2 (05:59→16:37)
[2017-02-19] MEDS: LEVOTHYROXINE 150 MCG TABLET PO SCH (05:59)
[2017-02-19] MEDS ORDERED: FUROSEMIDE 100 MG in SODIUM CHLORIDE 0.9% 90 ML IV SCH (08:30)
[2017-02-19] MEDS: LACTOBACILLUS CHEW TABLET PO SCH ×3 (08:58→22:08)
[2017-02-19] MEDS: INSULIN DETEMIR 100 UNITS/ML, PEN SQ-INSULIN SCH ×3 (09:00→22:11)
[2017-02-19] MEDS: HYDROCORTISONE 100 MG INJ. IV SCH ×2 (10:38→22:07)
[2017-02-19] MEDS: ERGOCALCIFEROL 50,000 UNIT CAPSULE PO SCH (10:38)
[2017-02-19] MEDS: VANCOMYCIN 50 MG/ML ORAL SUSP PO SCH ×2 (10:39→22:08)
[2017-02-19] MEDS: METOLAZONE 5 MG TABLET PO SCH ×2 (10:39→22:08)
[2017-02-19] MEDS: POTASSIUM CHLORIDE 10% 40 MEQ/30 ML UDC PO SCH ×2 (10:39→22:08)
[2017-02-19] MEDS: FLUDROCORTISONE 0.1 MG TABLET PO SCH (10:39)
[2017-02-19] MEDS: BUPROPION 75 MG TABLET PO SCH ×2 (10:40→22:08)
[2017-02-19] MEDS: BACITRACIN OINT 500U/GM, 15 GM TP SCH ×3 (10:41→22:09)
[2017-02-19] MEDS: FUROSEMIDE 100 MG in SODIUM CHLORIDE 0.9% 90 ML IV SCH ×2 (13:41→22:09)
[2017-02-19] MEDS: MORPHINE SULFATE 4 MG/ML, 1ML IVPush PRN ×2 (15:51→23:53)
[2017-02-19] MEDS ORDERED: hydrALAzine 20 MG/ML, 1ML IV PRN (17:30)
[2017-02-19] MEDS: AMLODIPINE 5 MG TABLET PO SCH (19:55)
[2017-02-19] MEDS: ERTAPENEM 1 GM in SODIUM CHLORIDE 0.9% 50 ML IV SCH (22:07)
[2017-02-19] MEDS: ATORVASTATIN 10 MG TABLET PO SCH (22:08)
[2017-02-20] MEDS: ALBUMIN HUMAN 25% 100 ML IV SCH ×3 (03:00→17:38)
[2017-02-20 05:27] LABS: BLOOD UREA NITROGEN 36 mg/dL (7-18)
[2017-02-20 05:29] LABS: HEMATOCRIT 25.8 % (34.6-47.8); HEMOGLOBIN 8.1 g/dL (11.7-16.4); WHITE BLOOD COUNT 6.2 x10^3/uL (3.4-10)
[2017-02-20] MEDS: CARVEDILOL 25 MG TABLET PO SCH ×2 (06:32→17:38)
[2017-02-20] MEDS: LEVOTHYROXINE 150 MCG TABLET PO SCH (06:32)
[2017-02-20 07:46] LABS: ABG COLLECTION SITE LEFT BRACHIAL
[2017-02-20] MEDS: HEPARIN 5,000 UNITS/ML, 1ML SQ SCH ×2 (08:16→17:27)
[2017-02-20] MEDS: HYDROCORTISONE 100 MG INJ. IV SCH ×2 (08:16→21:17)
[2017-02-20] MEDS: FLUDROCORTISONE 0.1 MG TABLET PO SCH (08:17)
[2017-02-20] MEDS: BUPROPION 75 MG TABLET PO SCH ×2 (08:18→21:18)
[2017-02-20] MEDS: AMLODIPINE 5 MG TABLET PO SCH (08:18)
[2017-02-20] MEDS: POTASSIUM CHLORIDE 10% 40 MEQ/30 ML UDC PO SCH ×4 (08:18→21:18)
[2017-02-20] MEDS: VANCOMYCIN 50 MG/ML ORAL SUSP PO SCH ×2 (08:18→21:18)
[2017-02-20] MEDS: LACTOBACILLUS CHEW TABLET PO SCH ×3 (08:18→21:19)
[2017-02-20] MEDS: METOLAZONE 5 MG TABLET PO SCH ×2 (08:19→21:19)
[2017-02-20] MEDS: BACITRACIN OINT 500U/GM, 15 GM TP SCH ×3 (08:20→21:19)
[2017-02-20] MEDS: INSULIN DETEMIR 100 UNITS/ML, PEN SQ-INSULIN SCH ×3 (08:21→21:22)
[2017-02-20] MEDS ORDERED: AMLODIPINE 5 MG TABLET PO SCH (09:00)
[2017-02-20] MEDS: FUROSEMIDE 100 MG in SODIUM CHLORIDE 0.9% 90 ML IV SCH ×2 (09:22→21:17)
[2017-02-20] MEDS: ERTAPENEM 1 GM in SODIUM CHLORIDE 0.9% 50 ML IV SCH (21:18)
[2017-02-20] MEDS: ATORVASTATIN 10 MG TABLET PO SCH (21:19)
[2017-02-20] MEDS: MORPHINE SULFATE 4 MG/ML, 1ML IVPush PRN (23:21)
[2017-02-21] MEDS: HEPARIN 5,000 UNITS/ML, 1ML SQ SCH ×3 (01:08→17:41)
[2017-02-21] MEDS: ALBUMIN HUMAN 25% 100 ML IV SCH ×3 (02:01→17:40)
[2017-02-21 04:34] LABS: ABG COLLECTION SITE LEFT RADIAL; COLLATERAL CIRCULATION TESTING NORMAL
[2017-02-21 04:49] LABS: HEMATOCRIT 25.6 % (34.6-47.8); HEMOGLOBIN 8.1 g/dL (11.7-16.4); WHITE BLOOD COUNT 6.6 x10^3/uL (3.4-10)
[2017-02-21 04:59] LABS: BLOOD UREA NITROGEN 36 mg/dL (7-18)
[2017-02-21] MEDS: CARVEDILOL 25 MG TABLET PO SCH ×3 (06:08→17:41)
[2017-02-21] MEDS: LEVOTHYROXINE 150 MCG TABLET PO SCH (06:30)
[2017-02-21] MEDS: MORPHINE SULFATE 4 MG/ML, 1ML IVPush PRN ×3 (07:59→21:20)
[2017-02-21] MEDS: FUROSEMIDE 100 MG in SODIUM CHLORIDE 0.9% 90 ML IV SCH ×2 (08:01→16:57)
[2017-02-21] MEDS ORDERED: POTASSIUM CHLORIDE 10% 40 MEQ/30 ML UDC PO ONE (09:00)
[2017-02-21] MEDS: AMLODIPINE 5 MG TABLET PO SCH (09:57)
[2017-02-21] MEDS: POTASSIUM CHLORIDE 10% 40 MEQ/30 ML UDC PO SCH ×3 (09:57→20:52)
[2017-02-21] MEDS: HYDROCORTISONE 100 MG INJ. IV SCH ×2 (09:57→20:52)
[2017-02-21] MEDS: LACTOBACILLUS CHEW TABLET PO SCH ×3 (09:58→20:52)
[2017-02-21] MEDS: METOLAZONE 5 MG TABLET PO SCH ×2 (09:58→20:52)
[2017-02-21] MEDS: VANCOMYCIN 50 MG/ML ORAL SUSP PO SCH ×2 (09:58→20:52)
[2017-02-21] MEDS: FLUDROCORTISONE 0.1 MG TABLET PO SCH (09:58)
[2017-02-21] MEDS: BUPROPION 75 MG TABLET PO SCH ×2 (09:58→20:53)
[2017-02-21] MEDS: BACITRACIN OINT 500U/GM, 15 GM TP SCH ×3 (09:59→20:53)
[2017-02-21] MEDS: INSULIN DETEMIR 100 UNITS/ML, PEN SQ-INSULIN SCH ×3 (09:59→21:00)
[2017-02-21] MEDS: ERTAPENEM 1 GM in SODIUM CHLORIDE 0.9% 50 ML IV SCH (20:52)
[2017-02-21] MEDS: ATORVASTATIN 10 MG TABLET PO SCH (20:53)
[2017-02-21] MEDS: MIDAZOLAM 1 MG/ML, 2ML IVPush PRN (21:15)
[2017-02-22] MEDS: MIDAZOLAM 1 MG/ML, 2ML IVPush PRN (01:12)
[2017-02-22] MEDS: MORPHINE SULFATE 4 MG/ML, 1ML IVPush PRN (01:12)
[2017-02-22] MEDS: HEPARIN 5,000 UNITS/ML, 1ML SQ SCH ×3 (01:12→17:58)
[2017-02-22] MEDS: ALBUMIN HUMAN 25% 100 ML IV SCH ×3 (01:12→17:38)
[2017-02-22 05:23] LABS: HEMATOCRIT 25.3 % (34.6-47.8); WHITE BLOOD COUNT 6.8 x10^3/uL (3.4-10)
[2017-02-22 05:26] LABS: BLOOD UREA NITROGEN 39 mg/dL (7-18)
[2017-02-22 06:03] LABS: ABG COLLECTION SITE RIGHT RADIAL; COLLATERAL CIRCULATION TESTING NORMAL
[2017-02-22] MEDS: CARVEDILOL 25 MG TABLET PO SCH ×2 (06:15→17:42)
[2017-02-22] MEDS: LEVOTHYROXINE 150 MCG TABLET PO SCH (06:16)
[2017-02-22] MEDS: FUROSEMIDE 100 MG in SODIUM CHLORIDE 0.9% 90 ML IV SCH ×2 (08:29→17:59)
[2017-02-22] MEDS: METOLAZONE 5 MG TABLET PO SCH ×2 (09:12→20:54)
[2017-02-22] MEDS: POTASSIUM CHLORIDE 10% 40 MEQ/30 ML UDC PO SCH ×3 (09:12→20:53)
[2017-02-22] MEDS: BUPROPION 75 MG TABLET PO SCH ×2 (09:12→20:54)
[2017-02-22] MEDS: AMLODIPINE 5 MG TABLET PO SCH (09:13)
[2017-02-22] MEDS: FLUDROCORTISONE 0.1 MG TABLET PO SCH (09:13)
[2017-02-22] MEDS: VANCOMYCIN 50 MG/ML ORAL SUSP PO SCH ×2 (09:14→20:54)
[2017-02-22] MEDS: HYDROCORTISONE 100 MG INJ. IV SCH ×2 (09:14→20:53)
[2017-02-22] MEDS: LACTOBACILLUS CHEW TABLET PO SCH ×3 (09:14→20:53)
[2017-02-22] MEDS: BACITRACIN OINT 500U/GM, 15 GM TP SCH (09:15)
[2017-02-22] MEDS: INSULIN DETEMIR 100 UNITS/ML, PEN SQ-INSULIN SCH ×3 (09:15→20:55)
[2017-02-22] MEDS: QUETIAPINE 25MG TABLET PO SCH ×3 (11:02→20:54)
[2017-02-22] MEDS: CEFTRIAXONE PMX 2GM/50ML 50 ML IVPB SCH (11:02)
[2017-02-22] MEDS ORDERED: BISACODYL 10 MG SUPP PR PRN (15:30)
[2017-02-22] MEDS ORDERED: hydrALAzine 20 MG/ML, 1ML IV PRN (15:30)
[2017-02-22] MEDS ORDERED: POLYETHYLENE GLYCOL 17 GM PACKET PO PRN (15:30)
[2017-02-22] MEDS ORDERED: LACTULOSE 20 GM/30 ML UDC NG PRN (15:30)
[2017-02-22] MEDS ORDERED: INSULIN ASPART 100 UNITS/ML, PEN SQ-INSULIN SCH (16:00)
[2017-02-22] MEDS ORDERED: MAGNESIUM SULFATE PMX 4GM/100M 100 ML IV ONE (17:30)
[2017-02-22] MEDS: ATORVASTATIN 10 MG TABLET PO SCH (20:53)
[2017-02-22] MEDS: INSULIN ASPART 100 UNITS/ML, PEN SQ-INSULIN SCH (20:55)
[2017-02-23] MEDS: ALBUMIN HUMAN 25% 100 ML IV SCH ×3 (03:12→17:48)
[2017-02-23] MEDS: MORPHINE SULFATE 4 MG/ML, 1ML IVPush PRN (03:13)
[2017-02-23] MEDS: MIDAZOLAM 1 MG/ML, 2ML IVPush PRN (03:13)
[2017-02-23] MEDS: HEPARIN 5,000 UNITS/ML, 1ML SQ SCH ×3 (03:13→18:00)
[2017-02-23 04:16] LABS: ABG COLLECTION SITE RIGHT RADIAL; COLLATERAL CIRCULATION TESTING NORMAL
[2017-02-23 04:18] LABS: HEMATOCRIT 24.8 % (34.6-47.8); HEMOGLOBIN 7.8 g/dL (11.7-16.4); WHITE BLOOD COUNT 7.6 x10^3/uL (3.4-10)
[2017-02-23 04:30] LABS: BLOOD UREA NITROGEN 43 mg/dL (7-18)
[2017-02-23] MEDS: LEVOTHYROXINE 150 MCG TABLET PO SCH (06:36)
[2017-02-23] MEDS: FUROSEMIDE 100 MG in SODIUM CHLORIDE 0.9% 90 ML IV SCH ×3 (06:36→23:09)
[2017-02-23] MEDS: POTASSIUM CHLORIDE 10% 40 MEQ/30 ML UDC PO SCH ×4 (06:36→21:42)
[2017-02-23] MEDS: CARVEDILOL 25 MG TABLET PO SCH ×2 (06:37→17:49)
[2017-02-23] MEDS: HYDROCORTISONE 100 MG INJ. IV SCH ×2 (08:40→21:41)
[2017-02-23] MEDS: FLUDROCORTISONE 0.1 MG TABLET PO SCH (08:40)
[2017-02-23] MEDS: AMLODIPINE 5 MG TABLET PO SCH (08:40)
[2017-02-23] MEDS: BUPROPION 75 MG TABLET PO SCH ×2 (08:40→21:42)
[2017-02-23] MEDS: METOLAZONE 5 MG TABLET PO SCH ×2 (08:41→21:43)
[2017-02-23] MEDS: LACTOBACILLUS CHEW TABLET PO SCH ×3 (08:41→21:41)
[2017-02-23] MEDS: QUETIAPINE 25MG TABLET PO SCH ×3 (08:41→21:42)
[2017-02-23] MEDS: CEFTRIAXONE PMX 2GM/50ML 50 ML IVPB SCH (08:41)
[2017-02-23] MEDS: VANCOMYCIN 50 MG/ML ORAL SUSP PO SCH ×2 (08:41→21:42)
[2017-02-23] MEDS: INSULIN DETEMIR 100 UNITS/ML, PEN SQ-INSULIN SCH ×3 (09:00→21:44)
[2017-02-23] MEDS: INSULIN ASPART 100 UNITS/ML, PEN SQ-INSULIN SCH ×4 (11:00→21:45)
[2017-02-23] MEDS: FAMOTIDINE 20 MG/2 ML IVPush SCH ×2 (11:27→21:41)
[2017-02-23] MEDS: metFORMIN 500 MG TABLET NG SCH ×2 (11:27→17:47)
[2017-02-23] MEDS ORDERED: DIPHENHYDRAMINE/ZINC CRM 2%, 30GM TP PRN (20:30)
[2017-02-23] MEDS: ATORVASTATIN 10 MG TABLET PO SCH (21:42)
[2017-02-24] MEDS: HEPARIN 5,000 UNITS/ML, 1ML SQ SCH ×3 (02:27→18:18)
[2017-02-24] MEDS: ALBUMIN HUMAN 25% 100 ML IV SCH ×3 (02:27→18:17)
[2017-02-24] MEDS: INSULIN ASPART 100 UNITS/ML, PEN SQ-INSULIN SCH ×4 (02:51→21:41)
[2017-02-24 02:55] LABS: HEMATOCRIT 24.9 % (34.6-47.8); HEMOGLOBIN 7.7 g/dL (11.7-16.4); WHITE BLOOD COUNT 8.9 x10^3/uL (3.4-10)
[2017-02-24 03:01] LABS: BLOOD UREA NITROGEN 53 mg/dL (7-18)
[2017-02-24 04:00] VITALS: BP 155/70
[2017-02-24 04:59] LABS: ABG COLLECTION SITE RIGHT RADIAL; COLLATERAL CIRCULATION TESTING NORMAL
[2017-02-24] MEDS: POTASSIUM CHLORIDE 10% 40 MEQ/30 ML UDC PO SCH ×4 (06:11→21:36)
[2017-02-24] MEDS: CARVEDILOL 25 MG TABLET PO SCH ×2 (06:11→18:22)
[2017-02-24] MEDS: LEVOTHYROXINE 150 MCG TABLET PO SCH (06:12)
[2017-02-24] MEDS: BUPROPION 75 MG TABLET PO SCH ×2 (09:12→21:58)
[2017-02-24] MEDS: VANCOMYCIN 50 MG/ML ORAL SUSP PO SCH ×2 (09:13→21:37)
[2017-02-24] MEDS: LACTOBACILLUS CHEW TABLET PO SCH ×3 (09:13→21:36)
[2017-02-24] MEDS: METOLAZONE 5 MG TABLET PO SCH ×2 (09:13→21:38)
[2017-02-24] MEDS: FLUDROCORTISONE 0.1 MG TABLET PO SCH (09:13)
[2017-02-24] MEDS: QUETIAPINE 25MG TABLET PO SCH ×3 (09:13→21:37)
[2017-02-24] MEDS: metFORMIN 500 MG TABLET NG SCH ×2 (09:13→18:22)
[2017-02-24] MEDS: AMLODIPINE 5 MG TABLET PO SCH (09:13)
[2017-02-24] MEDS: FUROSEMIDE 100 MG in SODIUM CHLORIDE 0.9% 90 ML IV SCH ×2 (09:14→21:00)
[2017-02-24] MEDS: FAMOTIDINE 20 MG/2 ML IVPush SCH ×2 (09:14→21:36)
[2017-02-24] MEDS: HYDROCORTISONE 100 MG INJ. IV SCH ×2 (09:14→21:36)
[2017-02-24] MEDS: CEFTRIAXONE PMX 2GM/50ML 50 ML IVPB SCH (09:14)
[2017-02-24] MEDS: INSULIN DETEMIR 100 UNITS/ML, PEN SQ-INSULIN SCH ×3 (09:32→21:40)
[2017-02-24] MEDS: ONDANSETRON 2MG/ML, 2ML IVPush PRN (09:58)
[2017-02-24] MEDS: MORPHINE SULFATE 4 MG/ML, 1ML IVPush PRN (11:20)
[2017-02-24] MEDS: ATORVASTATIN 10 MG TABLET PO SCH (21:36)
[2017-02-25] MEDS: ALBUMIN HUMAN 25% 100 ML IV SCH ×3 (01:53→18:00)
[2017-02-25] MEDS: HEPARIN 5,000 UNITS/ML, 1ML SQ SCH ×3 (01:54→18:00)
[2017-02-25] MEDS: MORPHINE SULFATE 4 MG/ML, 1ML IVPush PRN ×2 (02:31→22:20)
[2017-02-25] MEDS: INSULIN ASPART 100 UNITS/ML, PEN SQ-INSULIN SCH ×4 (03:05→21:49)
[2017-02-25 04:00] VITALS: BP 124/46
[2017-02-25 04:22] LABS: ABG COLLECTION SITE LEFT RADIAL; COLLATERAL CIRCULATION TESTING NORMAL
[2017-02-25 04:43] LABS: HEMOGLOBIN 7.2 g/dL (11.7-16.4); WHITE BLOOD COUNT 7.8 x10^3/uL (3.4-10)
[2017-02-25 05:01] LABS: ASPARTATE AMINO TRANSFERASE 56 U/L (15-37); BLOOD UREA NITROGEN 69 mg/dL (7-18)
[2017-02-25] MEDS: LEVOTHYROXINE 150 MCG TABLET PO SCH (05:45)
[2017-02-25] MEDS: CARVEDILOL 25 MG TABLET PO SCH ×2 (05:45→18:00)
[2017-02-25] MEDS: FUROSEMIDE 100 MG in SODIUM CHLORIDE 0.9% 90 ML IV SCH ×2 (06:27→16:27)
[2017-02-25] MEDS: FLUCONAZOLE 200 MG/100 ML 100 ML IV SCH (08:30)
[2017-02-25] MEDS: VANCOMYCIN 50 MG/ML ORAL SUSP PO SCH ×2 (08:41→21:50)
[2017-02-25] MEDS: METOLAZONE 5 MG TABLET PO SCH ×2 (08:41→21:54)
[2017-02-25] MEDS: AMLODIPINE 5 MG TABLET PO SCH (08:41)
[2017-02-25] MEDS: QUETIAPINE 25MG TABLET PO SCH ×3 (08:41→21:51)
[2017-02-25] MEDS: LACTOBACILLUS CHEW TABLET PO SCH ×3 (08:41→21:52)
[2017-02-25] MEDS: FLUDROCORTISONE 0.1 MG TABLET PO SCH (08:42)
[2017-02-25] MEDS: FAMOTIDINE 20 MG/2 ML IVPush SCH ×2 (08:42→21:50)
[2017-02-25] MEDS: HYDROCORTISONE 100 MG INJ. IV SCH ×2 (08:42→21:51)
[2017-02-25] MEDS: metFORMIN 500 MG TABLET NG SCH ×2 (08:42→16:26)
[2017-02-25] MEDS: CHOLESTYRAMINE LIGHT 4GM PACKET NG SCH ×2 (08:43→22:22)
[2017-02-25] MEDS: CEFTRIAXONE PMX 2GM/50ML 50 ML IVPB SCH (08:44)
[2017-02-25] MEDS: BUPROPION 75 MG TABLET PO SCH ×2 (08:44→22:22)
[2017-02-25] MEDS: INSULIN DETEMIR 100 UNITS/ML, PEN SQ-INSULIN SCH ×3 (09:19→21:48)
[2017-02-25] MEDS: ATORVASTATIN 10 MG TABLET PO SCH (21:50)
[2017-02-26] MEDS: HEPARIN 5,000 UNITS/ML, 1ML SQ SCH ×3 (02:11→18:03)
[2017-02-26] MEDS: ALBUMIN HUMAN 25% 100 ML IV SCH (02:11)
[2017-02-26 04:46] LABS: ABG COLLECTION SITE RIGHT RADIAL; COLLATERAL CIRCULATION TESTING NORMAL
[2017-02-26] MEDS: FUROSEMIDE 100 MG in SODIUM CHLORIDE 0.9% 90 ML IV SCH (04:48)
[2017-02-26] MEDS: INSULIN ASPART 100 UNITS/ML, PEN SQ-INSULIN SCH ×4 (04:49→21:03)
[2017-02-26 04:57] LABS: WHITE BLOOD COUNT 9.4 x10^3/uL (3.4-10)
[2017-02-26 04:58] LABS: HEMATOCRIT 21.6 % (34.6-47.8); HEMOGLOBIN 6.8 g/dL (11.7-16.4)
[2017-02-26 05:13] LABS: BLOOD UREA NITROGEN 89 mg/dL (7-18)
[2017-02-26] MEDS: CARVEDILOL 25 MG TABLET PO SCH ×2 (06:47→18:03)
[2017-02-26] MEDS: LEVOTHYROXINE 150 MCG TABLET PO SCH (06:47)
[2017-02-26] MEDS: metFORMIN 500 MG TABLET NG SCH ×2 (08:00→16:48)
[2017-02-26] MEDS: AMLODIPINE 5 MG TABLET PO SCH (09:00)
[2017-02-26 10:30] VITALS: BP 115/43
[2017-02-26 10:46] VITALS: BP 107/45
[2017-02-26 11:10] VITALS: BP 104/48
[2017-02-26] MEDS: VANCOMYCIN 50 MG/ML ORAL SUSP PO SCH ×2 (11:30→20:59)
[2017-02-26] MEDS: INSULIN DETEMIR 100 UNITS/ML, PEN SQ-INSULIN SCH ×3 (11:30→21:04)
[2017-02-26] MEDS: FLUDROCORTISONE 0.1 MG TABLET PO SCH (11:31)
[2017-02-26] MEDS: FLUCONAZOLE 200 MG/100 ML 100 ML IV SCH (11:31)
[2017-02-26] MEDS: BUPROPION 75 MG TABLET PO SCH ×2 (11:31→20:58)
[2017-02-26] MEDS: ERGOCALCIFEROL 50,000 UNIT CAPSULE PO SCH (11:31)
[2017-02-26] MEDS: QUETIAPINE 25MG TABLET PO SCH ×3 (11:31→20:59)
[2017-02-26] MEDS: LACTOBACILLUS CHEW TABLET PO SCH ×3 (11:31→20:58)
[2017-02-26] MEDS: HYDROCORTISONE 100 MG INJ. IV SCH ×2 (11:32→20:58)
[2017-02-26] MEDS: FAMOTIDINE 20 MG/2 ML IVPush SCH ×2 (11:37→20:58)
[2017-02-26] MEDS: ACETAMINOPHEN 325 MG TABLET PO PRN (14:26)
[2017-02-26] MEDS: CHOLESTYRAMINE LIGHT 4GM PACKET NG SCH ×2 (16:51→20:58)
[2017-02-26] MEDS: MORPHINE SULFATE 4 MG/ML, 1ML IVPush PRN (19:48)
[2017-02-26] MEDS: ATORVASTATIN 10 MG TABLET PO SCH (20:58)
[2017-02-27] MEDS: HEPARIN 5,000 UNITS/ML, 1ML SQ SCH ×3 (02:26→16:53)
[2017-02-27] MEDS: INSULIN ASPART 100 UNITS/ML, PEN SQ-INSULIN SCH ×4 (02:26→20:17)
[2017-02-27] MEDS: MORPHINE SULFATE 4 MG/ML, 1ML IVPush PRN ×2 (02:28→19:38)
[2017-02-27 03:59] LABS: HEMATOCRIT 25.3 % (34.6-47.8); WHITE BLOOD COUNT 10.2 x10^3/uL (3.4-10)
[2017-02-27 04:08] LABS: BLOOD UREA NITROGEN 68 mg/dL (7-18)
[2017-02-27 04:27] LABS: HEP B SURF. AB < 3.1 mIU/mL (0.0-10.0)
[2017-02-27 04:31] LABS: ABG COLLECTION SITE RIGHT RADIAL; COLLATERAL CIRCULATION TESTING NORMAL
[2017-02-27] MEDS: LEVOTHYROXINE 150 MCG TABLET PO SCH (05:59)
[2017-02-27] MEDS: CARVEDILOL 25 MG TABLET PO SCH (05:59)
[2017-02-27] MEDS: FLUCONAZOLE 200 MG/100 ML 100 ML IV SCH (09:19)
[2017-02-27] MEDS: FLUDROCORTISONE 0.1 MG TABLET PO SCH (09:20)
[2017-02-27] MEDS: BUPROPION 75 MG TABLET PO SCH ×2 (09:20→20:10)
[2017-02-27] MEDS: LACTOBACILLUS CHEW TABLET PO SCH ×3 (09:20→20:10)
[2017-02-27] MEDS: QUETIAPINE 25MG TABLET PO SCH ×3 (09:20→20:10)
[2017-02-27] MEDS: metFORMIN 500 MG TABLET NG SCH ×2 (09:20→16:53)
[2017-02-27] MEDS: VANCOMYCIN 50 MG/ML ORAL SUSP PO SCH ×2 (09:21→20:12)
[2017-02-27] MEDS: INSULIN DETEMIR 100 UNITS/ML, PEN SQ-INSULIN SCH ×3 (09:27→20:16)
[2017-02-27] MEDS: CHOLESTYRAMINE LIGHT 4GM PACKET NG SCH ×2 (10:50→20:10)
[2017-02-27] MEDS: CARVEDILOL 6.25 MG TABLET PO SCH (20:02)
[2017-02-27] MEDS: FAMOTIDINE 20 MG/2 ML IVPush SCH (20:11)
[2017-02-27] MEDS: ATORVASTATIN 10 MG TABLET PO SCH (20:11)
[2017-02-27] MEDS: HYDROCORTISONE 10 MG TABLET PO SCH (21:07)
[2017-02-28] MEDS: MORPHINE SULFATE 4 MG/ML, 1ML IVPush PRN ×5 (00:01→23:59)
[2017-02-28] MEDS: HEPARIN 5,000 UNITS/ML, 1ML SQ SCH ×3 (02:54→20:10)
[2017-02-28] MEDS: INSULIN ASPART 100 UNITS/ML, PEN SQ-INSULIN SCH ×4 (02:57→20:23)
[2017-02-28 04:22] LABS: BLOOD UREA NITROGEN 92 mg/dL (7-18)
[2017-02-28 04:27] LABS: ABG COLLECTION SITE LEFT BRACHIAL
[2017-02-28 04:28] LABS: HEMATOCRIT 24.1 % (34.6-47.8); HEMOGLOBIN 7.8 g/dL (11.7-16.4); WHITE BLOOD COUNT 10.2 x10^3/uL (3.4-10)
[2017-02-28] MEDS: CARVEDILOL 6.25 MG TABLET PO SCH ×2 (05:11→18:00)
[2017-02-28] MEDS: LEVOTHYROXINE 150 MCG TABLET PO SCH (05:11)
[2017-02-28] MEDS: metFORMIN 500 MG TABLET NG SCH (08:00)
[2017-02-28] MEDS: BUPROPION 75 MG TABLET PO SCH ×2 (09:00→20:09)
[2017-02-28] MEDS: LACTOBACILLUS CHEW TABLET PO SCH ×3 (09:00→20:09)
[2017-02-28] MEDS: INSULIN DETEMIR 100 UNITS/ML, PEN SQ-INSULIN SCH ×3 (09:00→20:24)
[2017-02-28] MEDS: VANCOMYCIN 50 MG/ML ORAL SUSP PO SCH ×2 (12:04→20:10)
[2017-02-28] MEDS: FLUCONAZOLE 200 MG/100 ML 100 ML IV SCH (12:04)
[2017-02-28] MEDS: FLUDROCORTISONE 0.1 MG TABLET PO SCH (12:05)
[2017-02-28] MEDS: QUETIAPINE 25MG TABLET PO SCH ×3 (12:05→20:09)
[2017-02-28] MEDS: HYDROCORTISONE 10 MG TABLET PO SCH ×2 (12:05→20:09)
[2017-02-28] MEDS: ARANESP 100 MCG/ML **ESRD SQ SCH (13:04)
[2017-02-28] MEDS: CHOLESTYRAMINE LIGHT 4GM PACKET NG SCH ×2 (13:05→20:08)
[2017-02-28] MEDS: ACETAMINOPHEN 325 MG TABLET PO PRN (13:54)
[2017-02-28] MEDS: DIPHENHYDRAMINE 12.5MG/5ML, 10ML UDC PO PRN ×2 (15:03→20:09)
[2017-02-28] MEDS: ATORVASTATIN 10 MG TABLET PO SCH (20:09)
[2017-02-28] MEDS: FAMOTIDINE 20 MG/2 ML IVPush SCH (20:10)
[2017-03-01] MEDS: INSULIN ASPART 100 UNITS/ML, PEN SQ-INSULIN SCH ×4 (03:19→21:16)
[2017-03-01] MEDS: MORPHINE SULFATE 4 MG/ML, 1ML IVPush PRN (04:04)
[2017-03-01 04:21] LABS: ABG COLLECTION SITE RIGHT RADIAL; COLLATERAL CIRCULATION TESTING NORMAL
[2017-03-01 04:26] LABS: HEMOGLOBIN 7.6 g/dL (11.7-16.4); WHITE BLOOD COUNT 10.4 x10^3/uL (3.4-10)
[2017-03-01 04:34] LABS: ASPARTATE AMINO TRANSFERASE 31 U/L (15-37); BLOOD UREA NITROGEN 60 mg/dL (7-18)
[2017-03-01 04:41] LABS: HEMATOCRIT 22.8 % (34.6-47.8)
[2017-03-01] MEDS: LEVOTHYROXINE 150 MCG TABLET PO SCH (05:53)
[2017-03-01] MEDS: HEPARIN 5,000 UNITS/ML, 1ML SQ SCH ×3 (05:53→21:14)
[2017-03-01] MEDS: CARVEDILOL 6.25 MG TABLET PO SCH ×2 (05:53→17:55)
[2017-03-01] MEDS: FLUCONAZOLE 200 MG/100 ML 100 ML IV SCH (08:09)
[2017-03-01] MEDS: FLUDROCORTISONE 0.1 MG TABLET PO SCH (08:10)
[2017-03-01] MEDS: HYDROCORTISONE 10 MG TABLET PO SCH ×2 (08:10→21:14)
[2017-03-01] MEDS: BUPROPION 75 MG TABLET PO SCH ×2 (08:10→21:15)
[2017-03-01] MEDS: LACTOBACILLUS CHEW TABLET PO SCH ×3 (08:10→21:15)
[2017-03-01] MEDS: QUETIAPINE 25MG TABLET PO SCH ×3 (08:11→21:15)
[2017-03-01] MEDS: VANCOMYCIN 50 MG/ML ORAL SUSP PO SCH ×2 (08:11→21:15)
[2017-03-01] MEDS: INSULIN DETEMIR 100 UNITS/ML, PEN SQ-INSULIN SCH ×3 (08:47→21:16)
[2017-03-01] MEDS: CHOLESTYRAMINE LIGHT 4GM PACKET NG SCH ×2 (09:58→21:14)
[2017-03-01] MEDS: FAMOTIDINE 20 MG/2 ML IVPush SCH (21:14)
[2017-03-01] MEDS: ATORVASTATIN 10 MG TABLET PO SCH (21:15)
[2017-03-02 04:19] LABS: ABG COLLECTION SITE RIGHT RADIAL; COLLATERAL CIRCULATION TESTING NORMAL
[2017-03-02 04:33] LABS: BLOOD UREA NITROGEN 73 mg/dL (7-18)
[2017-03-02] MEDS: HEPARIN 5,000 UNITS/ML, 1ML SQ SCH ×3 (04:57→20:30)
[2017-03-02] MEDS: INSULIN ASPART 100 UNITS/ML, PEN SQ-INSULIN SCH ×4 (04:57→20:32)
[2017-03-02] MEDS: CARVEDILOL 6.25 MG TABLET PO SCH ×2 (04:57→17:52)
[2017-03-02] MEDS: LEVOTHYROXINE 150 MCG TABLET PO SCH (04:57)
[2017-03-02 05:00] VITALS: BP 129/46
[2017-03-02 05:10] LABS: DIFF TOTAL CELLS COUNTED 100 CELL DIFF; HEMATOCRIT 23.5 % (34.6-47.8); HEMOGLOBIN 7.7 g/dL (11.7-16.4); WHITE BLOOD COUNT 11.5 x10^3/uL (3.4-10)
[2017-03-02 05:13] LABS: VERIFY COUNTS? YES
[2017-03-02 05:14] LABS: ANISOCYTOSIS 1+; POLYCHROMASIA 1+
[2017-03-02 05:15] LABS: LARGE PLATELETS 1+
[2017-03-02] MEDS: QUETIAPINE 25MG TABLET PO SCH ×3 (12:23→20:31)
[2017-03-02] MEDS: HYDROCORTISONE 10 MG TABLET PO SCH ×2 (12:23→20:30)
[2017-03-02] MEDS: FLUDROCORTISONE 0.1 MG TABLET PO SCH (12:24)
[2017-03-02] MEDS: BUPROPION 75 MG TABLET PO SCH ×2 (12:24→20:31)
[2017-03-02] MEDS: LACTOBACILLUS CHEW TABLET PO SCH ×3 (12:24→20:30)
[2017-03-02] MEDS: VANCOMYCIN 50 MG/ML ORAL SUSP PO SCH ×2 (12:25→20:31)
[2017-03-02] MEDS: INSULIN DETEMIR 100 UNITS/ML, PEN SQ-INSULIN SCH ×3 (12:38→20:31)
[2017-03-02] MEDS: DIPHENHYDRAMINE 12.5MG/5ML, 10ML UDC PO PRN (15:24)
[2017-03-02] MEDS: ACETAMINOPHEN 325 MG TABLET PO PRN (15:24)
[2017-03-02] MEDS: FAMOTIDINE 20 MG/2 ML IVPush SCH (20:30)
[2017-03-02] MEDS: ATORVASTATIN 10 MG TABLET PO SCH (20:30)
[2017-03-03] MEDS: INSULIN ASPART 100 UNITS/ML, PEN SQ-INSULIN SCH ×4 (03:45→20:16)
[2017-03-03] MEDS: HEPARIN 5,000 UNITS/ML, 1ML SQ SCH ×3 (03:45→20:14)
[2017-03-03 04:13] LABS: BLOOD UREA NITROGEN 49 mg/dL (7-18)
[2017-03-03 04:22] LABS: HEMOGLOBIN 7.3 g/dL (11.7-16.4); WHITE BLOOD COUNT 11.2 x10^3/uL (3.4-10)
[2017-03-03 04:29] LABS: ABG COLLECTION SITE LEFT BRACHIAL
[2017-03-03 04:32] LABS: HEMATOCRIT 22.3 % (34.6-47.8)
[2017-03-03 04:46] VITALS: BP 125/53
[2017-03-03] MEDS: CARVEDILOL 6.25 MG TABLET PO SCH ×2 (05:35→20:15)
[2017-03-03] MEDS: LEVOTHYROXINE 150 MCG TABLET PO SCH (05:35)
[2017-03-03] MEDS: FLUDROCORTISONE 0.1 MG TABLET PO SCH (08:34)
[2017-03-03] MEDS: VANCOMYCIN 50 MG/ML ORAL SUSP PO SCH ×2 (08:34→20:14)
[2017-03-03] MEDS: QUETIAPINE 25MG TABLET PO SCH ×3 (08:34→20:15)
[2017-03-03] MEDS: HYDROCORTISONE 10 MG TABLET PO SCH ×2 (08:34→20:15)
[2017-03-03] MEDS: BUPROPION 75 MG TABLET PO SCH ×2 (08:34→20:15)
[2017-03-03] MEDS: LACTOBACILLUS CHEW TABLET PO SCH ×3 (08:34→20:15)
[2017-03-03] MEDS: INSULIN DETEMIR 100 UNITS/ML, PEN SQ-INSULIN SCH ×3 (08:35→20:16)
[2017-03-03 11:04] LABS: HEMOGLOBIN 7.5 g/dL (11.7-16.4)
[2017-03-03 11:08] LABS: HEMATOCRIT 22.7 % (34.6-47.8)
[2017-03-03] MEDS: FAMOTIDINE 20 MG/2 ML IVPush SCH (20:14)
[2017-03-03] MEDS: ATORVASTATIN 10 MG TABLET PO SCH (20:15)
[2017-03-03] MEDS: MIDAZOLAM 1 MG/ML, 2ML IVPush PRN (21:28)
[2017-03-04] MEDS: MIDAZOLAM 1 MG/ML, 2ML IVPush PRN (00:46)
[2017-03-04] MEDS: MORPHINE SULFATE 4 MG/ML, 1ML IVPush PRN (02:13)
[2017-03-04] MEDS: ONDANSETRON 2MG/ML, 2ML IVPush PRN (02:16)
[2017-03-04] MEDS: HEPARIN 5,000 UNITS/ML, 1ML SQ SCH ×3 (03:27→19:47)
[2017-03-04] MEDS: INSULIN ASPART 100 UNITS/ML, PEN SQ-INSULIN SCH ×4 (03:27→21:31)
[2017-03-04 04:49] LABS: ABG COLLECTION SITE RIGHT RADIAL; COLLATERAL CIRCULATION TESTING NORMAL
[2017-03-04 05:00] VITALS: BP 110/47
[2017-03-04] MEDS: LEVOTHYROXINE 150 MCG TABLET PO SCH (05:18)
[2017-03-04] MEDS: CARVEDILOL 6.25 MG TABLET PO SCH ×2 (05:18→17:27)
[2017-03-04 06:23] LABS: HEMOGLOBIN 7.4 g/dL (11.7-16.4)
[2017-03-04 06:28] LABS: BLOOD UREA NITROGEN 38 mg/dL (7-18); HEMATOCRIT 22.1 % (34.6-47.8)
[2017-03-04] MEDS: HYDROCORTISONE 10 MG TABLET PO SCH ×2 (08:58→21:27)
[2017-03-04] MEDS: FLUDROCORTISONE 0.1 MG TABLET PO SCH (08:58)
[2017-03-04] MEDS: LACTOBACILLUS CHEW TABLET PO SCH ×3 (08:58→21:28)
[2017-03-04] MEDS: BUPROPION 75 MG TABLET PO SCH ×2 (08:59→21:28)
[2017-03-04] MEDS: QUETIAPINE 25MG TABLET PO SCH ×3 (08:59→21:28)
[2017-03-04] MEDS: INSULIN DETEMIR 100 UNITS/ML, PEN SQ-INSULIN SCH ×3 (09:01→21:30)
[2017-03-04] MEDS: ACETAMINOPHEN 325 MG TABLET PO PRN (17:27)
[2017-03-04] MEDS: FAMOTIDINE 20 MG/2 ML IVPush SCH (21:27)
[2017-03-04] MEDS: ATORVASTATIN 10 MG TABLET PO SCH (21:28)
[2017-03-05] MEDS: INSULIN ASPART 100 UNITS/ML, PEN SQ-INSULIN SCH ×3 (03:22→15:19)
[2017-03-05] MEDS: HEPARIN 5,000 UNITS/ML, 1ML SQ SCH ×3 (03:54→22:14)
[2017-03-05 04:00] VITALS: BP 132/46
[2017-03-05 04:42] LABS: BLOOD UREA NITROGEN 33 mg/dL (7-18)
[2017-03-05 04:43] LABS: HEMOGLOBIN 7.1 g/dL (11.7-16.4); WHITE BLOOD COUNT 10.8 x10^3/uL (3.4-10)
[2017-03-05 04:54] LABS: ABG COLLECTION SITE NOT DOCUMENTED
[2017-03-05 04:58] LABS: HEMATOCRIT 21.9 % (34.6-47.8)
[2017-03-05] MEDS: LEVOTHYROXINE 150 MCG TABLET PO SCH (05:39)
[2017-03-05] MEDS: CARVEDILOL 6.25 MG TABLET PO SCH ×3 (05:39→22:16)
[2017-03-05] MEDS: ERGOCALCIFEROL 50,000 UNIT CAPSULE PO SCH (09:00)
[2017-03-05] MEDS: INSULIN DETEMIR 100 UNITS/ML, PEN SQ-INSULIN SCH ×2 (10:11→15:18)
[2017-03-05] MEDS: HYDROCORTISONE 10 MG TABLET PO SCH ×2 (10:13→22:15)
[2017-03-05] MEDS: LACTOBACILLUS CHEW TABLET PO SCH ×3 (10:14→22:16)
[2017-03-05] MEDS: FLUDROCORTISONE 0.1 MG TABLET PO SCH (10:14)
[2017-03-05] MEDS: QUETIAPINE 25MG TABLET PO SCH ×4 (10:15→22:15)
[2017-03-05] MEDS: BUPROPION 75 MG TABLET PO SCH ×2 (10:17→22:15)
[2017-03-05 14:07] LABS: A/G RATIO 0.9 (0.7-1.7); ALBUMIN 3.3 g/dL (2.9-4.4); ALPHA-1-GLOBULIN 0.4 g/dL (0.0-0.4); BETA GLOBULIN 0.8 g/dL (0.7-1.3); GAMMA GLOBULIN 1.2 g/dL (0.4-1.8); PROTEIN TOTAL 6.9 g/dL (6.0-8.5)
[2017-03-05] MEDS: ACETAMINOPHEN 325 MG TABLET PO PRN (15:06)
[2017-03-05] MEDS ORDERED: REGULAR INSULIN 62.5 UNITS in SODIUM CHLORIDE 0.9% 249.375 ML IV PRN (18:00)
[2017-03-05] MEDS ORDERED: VANCOMYCIN PER PHARMACY MC PRN (18:30)
[2017-03-05] MEDS ORDERED: PHARMACOKINETIC MONITORING MC PRN (19:30)
[2017-03-05] MEDS ORDERED: VANCOMYCIN 2,000 MG in SODIUM CHLORIDE 0.9% 500 ML IV ONE (19:30)
[2017-03-05] MEDS ORDERED: PHARMACOKINETIC CONSULTATION MC ONE (19:30)
[2017-03-05 19:54] LABS: ASPARTATE AMINO TRANSFERASE 77 U/L (15-37); BLOOD UREA NITROGEN 50 mg/dL (7-18)
[2017-03-05] MEDS: PIPERACILLIN/TAZO 2.25 GM in SODIUM CHLORIDE 0.9% 50 ML IV SCH (22:13)
[2017-03-05] MEDS: FAMOTIDINE 20 MG/2 ML IVPush SCH (22:14)
[2017-03-05] MEDS: ATORVASTATIN 10 MG TABLET PO SCH (22:16)
[2017-03-05] MEDS: REGULAR INSULIN 250 UNITS in SODIUM CHLORIDE 0.9% 247.5 ML IV PRN (23:05)
[2017-03-06] MEDS: PIPERACILLIN/TAZO 2.25 GM in SODIUM CHLORIDE 0.9% 50 ML IV SCH ×4 (01:11→18:37)
[2017-03-06 04:38] LABS: ABG COLLECTION SITE LEFT BRACHIAL
[2017-03-06 04:54] LABS: BLOOD UREA NITROGEN 56 mg/dL (7-18)
[2017-03-06 05:07] LABS: HEMOGLOBIN 7.2 g/dL (11.7-16.4); WHITE BLOOD COUNT 11.2 x10^3/uL (3.4-10)
[2017-03-06 05:16] LABS: HEMATOCRIT 22.1 % (34.6-47.8)
[2017-03-06] MEDS: LEVOTHYROXINE 150 MCG TABLET PO SCH (05:17)
[2017-03-06] MEDS: HEPARIN 5,000 UNITS/ML, 1ML SQ SCH ×3 (05:17→19:58)
[2017-03-06] MEDS: ACETAMINOPHEN 325 MG TABLET PO PRN (06:43)
[2017-03-06] MEDS: LACTOBACILLUS CHEW TABLET PO SCH ×3 (08:48→20:01)
[2017-03-06] MEDS: FLUDROCORTISONE 0.1 MG TABLET PO SCH (08:48)
[2017-03-06] MEDS: BUPROPION 75 MG TABLET PO SCH ×2 (08:49→20:02)
[2017-03-06] MEDS: HYDROCORTISONE 10 MG TABLET PO SCH (08:49)
[2017-03-06] MEDS: INSULIN DETEMIR 100 UNITS/ML, PEN SQ-INSULIN SCH ×3 (08:50→20:04)
[2017-03-06] MEDS ORDERED: QUETIAPINE 25MG TABLET PO SCH (09:00)
[2017-03-06] MEDS ORDERED: NOREPINEPHRINE 4 MG in SODIUM CHLORIDE 0.9% 246 ML IV PRN ×2 (10:30→11:00)
[2017-03-06] MEDS: REGULAR INSULIN 250 UNITS in SODIUM CHLORIDE 0.9% 247.5 ML IV PRN (12:30)
[2017-03-06] MEDS: HYDROCORTISONE 100 MG INJ. IVPush SCH (15:30)
[2017-03-06] MEDS: CARVEDILOL 6.25 MG TABLET PO SCH (17:49)
[2017-03-06] MEDS ORDERED: NOREPINEPHRINE 8 MG in SODIUM CHLORIDE 0.9% 242 ML IV PRN (19:00)
[2017-03-06] MEDS: ATORVASTATIN 10 MG TABLET PO SCH (19:59)
[2017-03-06] MEDS: FAMOTIDINE 20 MG/2 ML IVPush SCH (20:00)
[2017-03-06] MEDS: QUETIAPINE 25MG TABLET PO SCH (20:01)
[2017-03-07] MEDS: PIPERACILLIN/TAZO 2.25 GM in SODIUM CHLORIDE 0.9% 50 ML IV SCH ×4 (00:49→22:24)
[2017-03-07] MEDS: HYDROCORTISONE 100 MG INJ. IVPush SCH ×3 (00:49→17:51)
[2017-03-07] MEDS: REGULAR INSULIN 500 UNITS in SODIUM CHLORIDE 0.9% 245 ML IV PRN ×2 (01:40→08:01)
[2017-03-07] MEDS: HEPARIN 5,000 UNITS/ML, 1ML SQ SCH ×2 (04:00→12:00)
[2017-03-07 04:28] LABS: ABG COLLECTION SITE LEFT RADIAL; COLLATERAL CIRCULATION TESTING NORMAL
[2017-03-07 05:43] LABS: BLOOD UREA NITROGEN 39 mg/dL (7-18)
[2017-03-07 05:44] LABS: HEMOGLOBIN 7.6 g/dL (11.7-16.4); WHITE BLOOD COUNT 14.3 x10^3/uL (3.4-10)
[2017-03-07 05:46] LABS: HEMATOCRIT 22.9 % (34.6-47.8)
[2017-03-07] MEDS: CARVEDILOL 6.25 MG TABLET PO SCH ×2 (05:49→21:02)
[2017-03-07 06:17] LABS: DIFF TOTAL CELLS COUNTED 100 CELL DIFF
[2017-03-07 06:20] LABS: VERIFY COUNTS? YES
[2017-03-07 06:21] LABS: ANISOCYTOSIS 1+; MICROCYTOSIS 1+
[2017-03-07 06:22] LABS: POLYCHROMASIA 2+
[2017-03-07] MEDS: LEVOTHYROXINE 150 MCG TABLET PO SCH (06:22)
[2017-03-07 06:25] LABS: SPHEROCYTES 1+
[2017-03-07] MEDS: FLUDROCORTISONE 0.1 MG TABLET PO SCH (09:35)
[2017-03-07] MEDS: INSULIN DETEMIR 100 UNITS/ML, PEN SQ-INSULIN SCH ×3 (09:35→21:03)
[2017-03-07] MEDS: LACTOBACILLUS CHEW TABLET PO SCH ×3 (09:35→21:02)
[2017-03-07] MEDS: SODIUM CHLORIDE 0.9% IV PRN ×2 (10:10→14:27)
[2017-03-07] MEDS: REGULAR INSULIN IV PRN ×2 (10:10→14:27)
[2017-03-07] MEDS ORDERED: VANCOMYCIN 2,000 MG in SODIUM CHLORIDE 0.9% 500 ML IV ONE (17:00)
[2017-03-07] MEDS: ARANESP 100 MCG/ML **ESRD SQ SCH (18:36)
[2017-03-07] MEDS: FAMOTIDINE 20 MG/2 ML IVPush SCH (21:01)
[2017-03-07] MEDS: ATORVASTATIN 10 MG TABLET PO SCH (21:02)
[2017-03-08] MEDS: HYDROCORTISONE 100 MG INJ. IVPush SCH ×2 (02:10→14:56)
[2017-03-08 04:24] LABS: ABG COLLECTION SITE LEFT RADIAL; COLLATERAL CIRCULATION TESTING NORMAL
[2017-03-08 05:04] LABS: HEMOGLOBIN 7.3 g/dL (11.7-16.4)
[2017-03-08 05:09] VITALS: BP 133/51
[2017-03-08 05:11] LABS: HEMATOCRIT 22.6 % (34.6-47.8)
[2017-03-08 05:23] LABS: BLOOD UREA NITROGEN 44 mg/dL (7-18)
[2017-03-08 05:35] LABS: DIFF TOTAL CELLS COUNTED 100 CELL DIFF
[2017-03-08 05:38] LABS: VERIFY COUNTS? YES
[2017-03-08 05:39] LABS: ANISOCYTOSIS 1+; POLYCHROMASIA 1+
[2017-03-08 05:41] LABS: SPHEROCYTES 1+
[2017-03-08] MEDS: PIPERACILLIN/TAZO 2.25 GM in SODIUM CHLORIDE 0.9% 50 ML IV SCH ×3 (05:51→22:09)
[2017-03-08] MEDS: CARVEDILOL 6.25 MG TABLET PO SCH ×2 (06:25→17:45)
[2017-03-08] MEDS: LEVOTHYROXINE 150 MCG TABLET PO SCH (06:25)
[2017-03-08] MEDS: INSULIN DETEMIR 100 UNITS/ML, PEN SQ-INSULIN SCH ×2 (09:17→17:27)
[2017-03-08] MEDS: LACTOBACILLUS CHEW TABLET PO SCH ×3 (09:18→21:28)
[2017-03-08] MEDS: FLUDROCORTISONE 0.1 MG TABLET PO SCH (09:18)
[2017-03-08] MEDS ORDERED: VANCOMYCIN PER PHARMACY MC PRN (19:30)
[2017-03-08] MEDS ORDERED: POLYETHYLENE GLYCOL 17 GM PACKET PO PRN (19:30)
[2017-03-08] MEDS ORDERED: PHARMACOKINETIC MONITORING MC PRN (19:30)
[2017-03-08] MEDS ORDERED: LACTULOSE 20 GM/30 ML UDC NG PRN (19:30)
[2017-03-08] MEDS ORDERED: BISACODYL 10 MG SUPP PR PRN (19:30)
[2017-03-08] MEDS ORDERED: hydrALAzine 20 MG/ML, 1ML IV PRN (19:30)
[2017-03-08] MEDS: ATORVASTATIN 10 MG TABLET PO SCH (21:28)
[2017-03-08] MEDS: FAMOTIDINE 20 MG/2 ML IVPush SCH (22:09)
[2017-03-09] MEDS: INSULIN DETEMIR 100 UNITS/ML, PEN SQ-INSULIN SCH ×3 (00:39→17:00)
[2017-03-09] MEDS: HYDROCORTISONE 100 MG INJ. IVPush SCH ×2 (00:40→12:34)
[2017-03-09 04:14] LABS: HEMOGLOBIN 7.1 g/dL (11.7-16.4); WHITE BLOOD COUNT 11.1 x10^3/uL (3.4-10)
[2017-03-09 04:16] LABS: ABG COLLECTION SITE LEFT BRACHIAL
[2017-03-09 04:18] LABS: HEMATOCRIT 22.8 % (34.6-47.8)
[2017-03-09 04:26] LABS: BLOOD UREA NITROGEN 67 mg/dL (7-18)
[2017-03-09 05:00] VITALS: BP 117/45
[2017-03-09] MEDS: CARVEDILOL 6.25 MG TABLET PO SCH ×2 (05:50→17:16)
[2017-03-09] MEDS: PIPERACILLIN/TAZO 2.25 GM in SODIUM CHLORIDE 0.9% 50 ML IV SCH ×3 (06:02→23:01)
[2017-03-09] MEDS: LEVOTHYROXINE 150 MCG TABLET PO SCH (06:02)
[2017-03-09] MEDS: FLUDROCORTISONE 0.1 MG TABLET PO SCH (09:00)
[2017-03-09] MEDS: FLORASTOR 250 MG CAPSULE NG SCH ×2 (09:03→20:49)
[2017-03-09] MEDS: VANCOMYCIN 50 MG/ML ORAL SUSP NG SCH ×2 (09:47→20:49)
[2017-03-09] MEDS: CHOLESTYRAMINE LIGHT 4GM PACKET NG SCH ×2 (09:47→21:46)
[2017-03-09] MEDS: FAMOTIDINE 20 MG/2 ML IVPush SCH (20:49)
[2017-03-09] MEDS: ATORVASTATIN 10 MG TABLET PO SCH (20:49)
[2017-03-10] MEDS: HYDROCORTISONE 100 MG INJ. IVPush SCH ×2 (00:58→13:54)
[2017-03-10] MEDS: INSULIN DETEMIR 100 UNITS/ML, PEN SQ-INSULIN SCH ×3 (01:00→17:29)
[2017-03-10 04:27] LABS: ABG COLLECTION SITE LEFT RADIAL; COLLATERAL CIRCULATION TESTING NORMAL
[2017-03-10 04:29] LABS: WHITE BLOOD COUNT 12.6 x10^3/uL (3.4-10)
[2017-03-10 04:31] LABS: HEMATOCRIT 22.2 % (34.6-47.8)
[2017-03-10 04:41] LABS: BLOOD UREA NITROGEN 59 mg/dL (7-18)
[2017-03-10 05:00] VITALS: BP 124/62
[2017-03-10 05:17] LABS: DIFF TOTAL CELLS COUNTED 100 CELL DIFF
[2017-03-10 05:19] LABS: ANISOCYTOSIS 1+; POLYCHROMASIA 1+; VERIFY COUNTS? YES
[2017-03-10 05:20] LABS: SPHEROCYTES 1+
[2017-03-10] MEDS: PIPERACILLIN/TAZO 2.25 GM in SODIUM CHLORIDE 0.9% 50 ML IV SCH ×3 (06:17→22:55)
[2017-03-10] MEDS: LEVOTHYROXINE 150 MCG TABLET PO SCH (06:18)
[2017-03-10] MEDS: CARVEDILOL 6.25 MG TABLET PO SCH ×2 (06:18→17:03)
[2017-03-10] MEDS: FLORASTOR 250 MG CAPSULE NG SCH ×2 (09:00→21:20)
[2017-03-10] MEDS: CHOLESTYRAMINE LIGHT 4GM PACKET NG SCH ×2 (10:07→22:12)
[2017-03-10] MEDS: FLUDROCORTISONE 0.1 MG TABLET PO SCH (10:08)
[2017-03-10] MEDS: VANCOMYCIN 50 MG/ML ORAL SUSP NG SCH ×2 (10:29→21:00)
[2017-03-10] MEDS ORDERED: INSULIN ASPART 100 UNITS/ML, PEN SQ-INSULIN SCH ×2 (16:00→20:00)
[2017-03-10] MEDS: ATORVASTATIN 10 MG TABLET PO SCH (20:59)
[2017-03-10] MEDS: FAMOTIDINE 20 MG/2 ML IVPush SCH (20:59)
[2017-03-11] MEDS: INSULIN ASPART 100 UNITS/ML, PEN SQ-INSULIN SCH ×6 (00:22→20:21)
[2017-03-11] MEDS: HYDROCORTISONE 100 MG INJ. IVPush SCH ×2 (00:42→12:23)
[2017-03-11] MEDS: INSULIN DETEMIR 100 UNITS/ML, PEN SQ-INSULIN SCH ×3 (00:44→17:11)
[2017-03-11 04:33] LABS: ABG COLLECTION SITE RIGHT RADIAL; COLLATERAL CIRCULATION TESTING NORMAL
[2017-03-11 04:43] LABS: BLOOD UREA NITROGEN 64 mg/dL (7-18)
[2017-03-11 04:47] LABS: WHITE BLOOD COUNT 11.1 x10^3/uL (3.4-10)
[2017-03-11 05:00] VITALS: BP 123/46
[2017-03-11 05:07] LABS: DIFF TOTAL CELLS COUNTED 100 CELL DIFF
[2017-03-11 05:09] LABS: ANISOCYTOSIS 1+; POLYCHROMASIA 1+; SPHEROCYTES 1+; VERIFY COUNTS? YES
[2017-03-11 05:10] LABS: MICROCYTOSIS 1+
[2017-03-11 05:13] LABS: HEMATOCRIT 22.2 % (34.6-47.8)
[2017-03-11] MEDS: CARVEDILOL 6.25 MG TABLET PO SCH ×2 (06:00→18:43)
[2017-03-11] MEDS: LEVOTHYROXINE 150 MCG TABLET PO SCH (06:11)
[2017-03-11] MEDS: PIPERACILLIN/TAZO 2.25 GM in SODIUM CHLORIDE 0.9% 50 ML IV SCH ×3 (06:12→23:21)
[2017-03-11] MEDS: FLORASTOR 250 MG CAPSULE NG SCH ×2 (10:18→20:53)
[2017-03-11] MEDS: CHOLESTYRAMINE LIGHT 4GM PACKET NG SCH ×2 (10:18→20:53)
[2017-03-11] MEDS: FLUDROCORTISONE 0.1 MG TABLET PO SCH (10:18)
[2017-03-11] MEDS: VANCOMYCIN 50 MG/ML ORAL SUSP NG SCH ×2 (10:18→20:54)
[2017-03-11] MEDS ORDERED: LIDOCAINE 1%, 20ML ONE (13:33)
[2017-03-11] MEDS ORDERED: FENTANYL PF 100 MCG/2ML ONE (13:58)
[2017-03-11] MEDS ORDERED: NALOXONE 1 MG/ML, 2ML ONE (13:58)
[2017-03-11] MEDS: ATORVASTATIN 10 MG TABLET PO SCH (20:54)
[2017-03-11] MEDS: FAMOTIDINE 20 MG/2 ML IVPush SCH (23:21)
[2017-03-12] MEDS: INSULIN ASPART 100 UNITS/ML, PEN SQ-INSULIN SCH ×6 (00:01→22:31)
[2017-03-12] MEDS: INSULIN DETEMIR 100 UNITS/ML, PEN SQ-INSULIN SCH ×3 (00:03→16:47)
[2017-03-12] MEDS: HYDROCORTISONE 100 MG INJ. IVPush SCH ×2 (01:12→13:41)
[2017-03-12 04:00] VITALS: BP 127/44
[2017-03-12 04:31] LABS: ABG COLLECTION SITE RIGHT RADIAL; COLLATERAL CIRCULATION TESTING NORMAL
[2017-03-12 05:46] LABS: BLOOD UREA NITROGEN 50 mg/dL (7-18)
[2017-03-12 06:07] LABS: HEMOGLOBIN 7.2 g/dL (11.7-16.4); WHITE BLOOD COUNT 10.5 x10^3/uL (3.4-10)
[2017-03-12 06:14] LABS: HEMATOCRIT 21.9 % (34.6-47.8)
[2017-03-12] MEDS ORDERED: LORazepam 2 MG/ML, 1ML ONE (06:19)
[2017-03-12] MEDS: CARVEDILOL 6.25 MG TABLET PO SCH ×2 (06:21→18:31)
[2017-03-12] MEDS: PIPERACILLIN/TAZO 2.25 GM in SODIUM CHLORIDE 0.9% 50 ML IV SCH ×3 (06:22→22:54)
[2017-03-12] MEDS: LEVOTHYROXINE 150 MCG TABLET PO SCH (06:22)
[2017-03-12] MEDS ORDERED: LORazepam 2 MG/ML, 1ML IVPush ONE (06:30)
[2017-03-12 06:37] LABS: DIFF TOTAL CELLS COUNTED 100 CELL DIFF
[2017-03-12 06:41] LABS: ANISOCYTOSIS 1+; POLYCHROMASIA 1+; VERIFY COUNTS? YES
[2017-03-12 06:42] LABS: SPHEROCYTES 1+
[2017-03-12] MEDS ORDERED: FENTANYL PF 100 MCG/2ML ONE (06:46)
[2017-03-12] MEDS ORDERED: MIDAZOLAM 1 MG/ML, 2ML ONE (06:46)
[2017-03-12] MEDS ORDERED: BUPIVACAINE/PF 0.5% ONE (07:03)
[2017-03-12] MEDS ORDERED: PHENYLEPHRINE 10 MG/ML ONE (07:28)
[2017-03-12] MEDS ORDERED: ROCURONIUM 10 MG/ML ONE (07:28)
[2017-03-12] MEDS ORDERED: PROPOFOL 10 MG/ML, 20ML ONE (07:28)
[2017-03-12] MEDS: FLUDROCORTISONE 0.1 MG TABLET PO SCH (10:25)
[2017-03-12] MEDS: ERGOCALCIFEROL 50,000 UNIT CAPSULE PO SCH (10:26)
[2017-03-12] MEDS: VANCOMYCIN 50 MG/ML ORAL SUSP NG SCH ×2 (10:28→20:48)
[2017-03-12] MEDS: FLORASTOR 250 MG CAPSULE NG SCH ×2 (10:29→20:49)
[2017-03-12] MEDS: CHOLESTYRAMINE LIGHT 4GM PACKET NG SCH ×2 (12:21→20:48)
[2017-03-12] MEDS ORDERED: VANCOMYCIN PMX 1GM/200ML 200 ML IVPB ONE (16:00)
[2017-03-12] MEDS: FAMOTIDINE 20 MG/2 ML IVPush SCH (20:48)
[2017-03-12] MEDS: ATORVASTATIN 10 MG TABLET PO SCH (20:49)
[2017-03-13] VITALS (7 sets, daily range): BP systolic 92–139; BP diastolic 34–93
[2017-03-13] MEDS: INSULIN DETEMIR 100 UNITS/ML, PEN SQ-INSULIN SCH ×3 (00:40→17:53)
[2017-03-13] MEDS: HYDROCORTISONE 100 MG INJ. IVPush SCH ×2 (00:40→13:13)
[2017-03-13] MEDS: INSULIN ASPART 100 UNITS/ML, PEN SQ-INSULIN SCH ×6 (02:11→21:56)
[2017-03-13 04:32] LABS: ABG COLLECTION SITE RIGHT RADIAL; COLLATERAL CIRCULATION TESTING NORMAL
[2017-03-13 04:37] LABS: WHITE BLOOD COUNT 11.8 x10^3/uL (3.4-10)
[2017-03-13 04:39] LABS: HEMATOCRIT 21.1 % (34.6-47.8); HEMOGLOBIN 6.9 g/dL (11.7-16.4)
[2017-03-13 04:44] LABS: BLOOD UREA NITROGEN 67 mg/dL (7-18)
[2017-03-13] MEDS: LEVOTHYROXINE 150 MCG TABLET PO SCH (06:16)
[2017-03-13] MEDS: PIPERACILLIN/TAZO 2.25 GM in SODIUM CHLORIDE 0.9% 50 ML IV SCH ×2 (06:16→19:54)
[2017-03-13] MEDS: CARVEDILOL 6.25 MG TABLET PO SCH ×2 (06:16→17:49)
[2017-03-13] MEDS: FLUDROCORTISONE 0.1 MG TABLET PO SCH (10:04)
[2017-03-13] MEDS: FLORASTOR 250 MG CAPSULE NG SCH ×2 (10:05→20:38)
[2017-03-13] MEDS: VANCOMYCIN 50 MG/ML ORAL SUSP NG SCH ×2 (10:05→20:38)
[2017-03-13] MEDS: CHOLESTYRAMINE LIGHT 4GM PACKET NG SCH ×2 (14:08→20:38)
[2017-03-13] MEDS: FAMOTIDINE 20 MG/2 ML IVPush SCH (20:38)
[2017-03-13] MEDS: ATORVASTATIN 10 MG TABLET PO SCH (20:38)
[2017-03-14] MEDS: HYDROCORTISONE 100 MG INJ. IVPush SCH ×2 (00:33→12:53)
[2017-03-14] MEDS: INSULIN DETEMIR 100 UNITS/ML, PEN SQ-INSULIN SCH ×3 (00:33→14:40)
[2017-03-14] MEDS: INSULIN ASPART 100 UNITS/ML, PEN SQ-INSULIN SCH ×11 (02:05→22:10)
[2017-03-14] MEDS: PIPERACILLIN/TAZO 2.25 GM in SODIUM CHLORIDE 0.9% 50 ML IV SCH ×3 (03:20→18:26)
[2017-03-14 04:29] LABS: ABG COLLECTION SITE RIGHT RADIAL; COLLATERAL CIRCULATION TESTING NORMAL
[2017-03-14 04:45] LABS: HEMATOCRIT 25.8 % (34.6-47.8); HEMOGLOBIN 8.6 g/dL (11.7-16.4); WHITE BLOOD COUNT 11.7 x10^3/uL (3.4-10)
[2017-03-14 04:46] LABS: BLOOD UREA NITROGEN 53 mg/dL (7-18)
[2017-03-14 05:17] VITALS: BP 139/55
[2017-03-14 05:44] LABS: DIFF TOTAL CELLS COUNTED 100 CELL DIFF
[2017-03-14 05:46] LABS: ANISOCYTOSIS 1+; POLYCHROMASIA 1+; VERIFY COUNTS? YES
[2017-03-14 05:47] LABS: LARGE PLATELETS 1+
[2017-03-14] MEDS: LEVOTHYROXINE 150 MCG TABLET PO SCH (05:57)
[2017-03-14] MEDS: CARVEDILOL 6.25 MG TABLET PO SCH ×2 (05:58→18:24)
[2017-03-14] MEDS ORDERED: LIDOCAINE-MPF 1%, 2ML ENDO ONE (06:00)
[2017-03-14] MEDS: FLORASTOR 250 MG CAPSULE NG SCH ×2 (09:03→21:59)
[2017-03-14] MEDS: FLUDROCORTISONE 0.1 MG TABLET PO SCH (09:03)
[2017-03-14] MEDS: VANCOMYCIN 50 MG/ML ORAL SUSP NG SCH ×2 (09:03→21:59)
[2017-03-14] MEDS: CHOLESTYRAMINE LIGHT 4GM PACKET NG SCH (09:03)
[2017-03-14] MEDS: ARANESP 100 MCG/ML **ESRD SQ SCH (19:19)
[2017-03-14] MEDS: ATORVASTATIN 10 MG TABLET PO SCH (21:59)
[2017-03-14] MEDS: FAMOTIDINE 20 MG/2 ML IVPush SCH (21:59)
[2017-03-15] MEDS: CHOLESTYRAMINE LIGHT 4GM PACKET NG SCH ×3 (00:07→22:17)
[2017-03-15] MEDS: INSULIN ASPART 100 UNITS/ML, PEN SQ-INSULIN SCH ×12 (00:10→22:23)
[2017-03-15] MEDS: INSULIN DETEMIR 100 UNITS/ML, PEN SQ-INSULIN SCH ×3 (00:11→16:13)
[2017-03-15] MEDS: HYDROCORTISONE 100 MG INJ. IVPush SCH ×3 (00:12→23:58)
[2017-03-15] MEDS: PIPERACILLIN/TAZO 2.25 GM in SODIUM CHLORIDE 0.9% 50 ML IV SCH ×2 (02:16→11:01)
[2017-03-15 04:09] VITALS: BP 113/55
[2017-03-15 04:24] LABS: ABG COLLECTION SITE RIGHT RADIAL; COLLATERAL CIRCULATION TESTING NORMAL
[2017-03-15 04:27] LABS: HEMATOCRIT 24.6 % (34.6-47.8); HEMOGLOBIN 8.2 g/dL (11.7-16.4); WHITE BLOOD COUNT 10.1 x10^3/uL (3.4-10)
[2017-03-15 04:37] LABS: BLOOD UREA NITROGEN 78 mg/dL (7-18)
[2017-03-15] MEDS: CARVEDILOL 6.25 MG TABLET PO SCH ×2 (05:48→18:21)
[2017-03-15] MEDS: LEVOTHYROXINE 150 MCG TABLET PO SCH (05:49)
[2017-03-15] MEDS: VANCOMYCIN 50 MG/ML ORAL SUSP NG SCH ×2 (09:03→20:07)
[2017-03-15] MEDS: FLUDROCORTISONE 0.1 MG TABLET PO SCH (09:05)
[2017-03-15] MEDS: FLORASTOR 250 MG CAPSULE NG SCH ×2 (09:05→20:07)
[2017-03-15] MEDS ORDERED: ARANESP 100 MCG/ML **ESRD SQ SCH (15:35)
[2017-03-15] MEDS ORDERED: hydrALAzine 20 MG/ML, 1ML IV PRN (19:30)
[2017-03-15] MEDS ORDERED: BISACODYL 10 MG SUPP PR PRN (19:30)
[2017-03-15] MEDS ORDERED: POLYETHYLENE GLYCOL 17 GM PACKET PO PRN (19:30)
[2017-03-15] MEDS: FAMOTIDINE 20 MG/2 ML IVPush SCH (20:07)
[2017-03-15] MEDS: ATORVASTATIN 10 MG TABLET PO SCH (20:07)
[2017-03-15] MEDS: DIPHENHYDRAMINE 12.5MG/5ML, 10ML UDC PO PRN (23:30)
[2017-03-16] MEDS: INSULIN DETEMIR 100 UNITS/ML, PEN SQ-INSULIN SCH ×4 (00:01→23:59)
[2017-03-16] MEDS: INSULIN ASPART 100 UNITS/ML, PEN SQ-INSULIN SCH ×13 (00:02→23:58)
[2017-03-16 04:00] VITALS: BP 156/65
[2017-03-16 04:19] LABS: HEMATOCRIT 24.9 % (34.6-47.8); HEMOGLOBIN 8.2 g/dL (11.7-16.4); WHITE BLOOD COUNT 10.9 x10^3/uL (3.4-10)
[2017-03-16 04:47] LABS: BLOOD UREA NITROGEN 102 mg/dL (7-18)
[2017-03-16] MEDS: LEVOTHYROXINE 150 MCG TABLET PO SCH (05:13)
[2017-03-16] MEDS: CARVEDILOL 6.25 MG TABLET PO SCH ×2 (05:13→18:08)
[2017-03-16 05:57] LABS: ABG COLLECTION SITE RIGHT RADIAL; COLLATERAL CIRCULATION TESTING NORMAL
[2017-03-16] MEDS: FLORASTOR 250 MG CAPSULE NG SCH ×2 (08:50→19:53)
[2017-03-16] MEDS: FLUDROCORTISONE 0.1 MG TABLET PO SCH (08:51)
[2017-03-16] MEDS: VANCOMYCIN 50 MG/ML ORAL SUSP NG SCH ×2 (08:52→19:53)
[2017-03-16 09:36] LABS: PTH INTACT INTERPRETATION ** Comment **
[2017-03-16 09:55] LABS: FERRITIN 253.9 ng/mL (8-252)
[2017-03-16 10:00] LABS: PARATHYROID HORMONE INTACT 4.8 pg/mL (14-72)
[2017-03-16] MEDS: CHOLESTYRAMINE LIGHT 4GM PACKET NG SCH ×2 (10:59→22:14)
[2017-03-16] MEDS: HYDROCORTISONE 100 MG INJ. IVPush SCH ×2 (12:36→23:54)
[2017-03-16] MEDS: DIPHENHYDRAMINE 12.5MG/5ML, 10ML UDC PO PRN (13:43)
[2017-03-16] MEDS: FAMOTIDINE 20 MG/2 ML IVPush SCH (19:53)
[2017-03-16] MEDS: ATORVASTATIN 10 MG TABLET PO SCH (19:53)
[2017-03-16] MEDS: ALBUTEROL/IPRATROPIUM 2.5MG/0.5MG, 3 ML NPPB PRN (20:41)
[2017-03-17] MEDS: ALBUTEROL/IPRATROPIUM 2.5MG/0.5MG, 3 ML NPPB PRN ×2 (02:08→19:22)
[2017-03-17] MEDS: INSULIN ASPART 100 UNITS/ML, PEN SQ-INSULIN SCH ×8 (03:02→21:20)
[2017-03-17 04:28] LABS: BLOOD UREA NITROGEN 80 mg/dL (7-18)
[2017-03-17 04:32] LABS: ASPARTATE AMINO TRANSFERASE 64 U/L (15-37)
[2017-03-17 04:42] VITALS: BP 122/50
[2017-03-17 04:47] LABS: ABG COLLECTION SITE RIGHT RADIAL; COLLATERAL CIRCULATION TESTING NORMAL
[2017-03-17 04:50] LABS: HEMATOCRIT 25.1 % (34.6-47.8); HEMOGLOBIN 8.3 g/dL (11.7-16.4); WHITE BLOOD COUNT 10.7 x10^3/uL (3.4-10)
[2017-03-17] MEDS: LEVOTHYROXINE 150 MCG TABLET PO SCH (06:02)
[2017-03-17] MEDS: CARVEDILOL 6.25 MG TABLET PO SCH ×2 (06:02→18:39)
[2017-03-17] MEDS: CHOLESTYRAMINE LIGHT 4GM PACKET NG SCH ×2 (09:38→21:07)
[2017-03-17] MEDS: FLUDROCORTISONE 0.1 MG TABLET PO SCH (09:38)
[2017-03-17] MEDS: FLORASTOR 250 MG CAPSULE NG SCH ×2 (09:38→21:07)
[2017-03-17] MEDS: VANCOMYCIN 50 MG/ML ORAL SUSP NG SCH ×2 (09:38→23:53)
[2017-03-17] MEDS: INSULIN DETEMIR 100 UNITS/ML, PEN SQ-INSULIN SCH ×2 (09:53→16:22)
[2017-03-17] MEDS: HYDROCORTISONE 100 MG INJ. IVPush SCH ×2 (13:20→23:53)
[2017-03-17] MEDS: ATORVASTATIN 10 MG TABLET PO SCH (23:53)
[2017-03-17] MEDS: FAMOTIDINE 20 MG/2 ML IVPush SCH (23:53)
[2017-03-18] MEDS: INSULIN ASPART 100 UNITS/ML, PEN SQ-INSULIN SCH ×2 (03:16→08:09)
[2017-03-18 04:46] VITALS: BP 124/52
[2017-03-18 04:53] LABS: HEMATOCRIT 25.7 % (34.6-47.8); HEMOGLOBIN 8.6 g/dL (11.7-16.4); WHITE BLOOD COUNT 12.6 x10^3/uL (3.4-10)
[2017-03-18 05:13] LABS: BLOOD UREA NITROGEN 56 mg/dL (7-18)
[2017-03-18] MEDS: LEVOTHYROXINE 150 MCG TABLET PO SCH (06:04)
[2017-03-18] MEDS: CARVEDILOL 6.25 MG TABLET PO SCH (06:04)
[2017-03-18 07:14] LABS: ABG COLLECTION SITE RIGHT BRACHIAL; FIO2 45 %
[2017-03-18] MEDS ORDERED: IRON SUCROSE COMPLEX 100MG/5ML IV SCH (08:00)
[2017-03-18] MEDS: INSULIN DETEMIR 100 UNITS/ML, PEN SQ-INSULIN SCH ×2 (08:09)
[2017-03-18] MEDS: FLUDROCORTISONE 0.1 MG TABLET PO SCH (08:45)
[2017-03-18] MEDS: VANCOMYCIN 50 MG/ML ORAL SUSP NG SCH (08:45)
[2017-03-18] MEDS: FLORASTOR 250 MG CAPSULE NG SCH (08:46)
[2017-03-18] MEDS ORDERED: HEPARIN 5,000 UNITS/ML, 1ML SQ SCH (09:00)
[2017-03-18] MEDS ORDERED: LACT20SO13 NG (10:22)
[2017-03-18] MEDS ORDERED: ERGO500017 PO (10:22)
[2017-03-18] MEDS ORDERED: HYDR100V IVPush (10:22)
[2017-03-18] MEDS ORDERED: DARB100V SQ (10:22)
[2017-03-18] MEDS ORDERED: FLUD0.1T PO (10:22)
[2017-03-18] MEDS ORDERED: HEPA5000 SQ (10:22)
[2017-03-18] MEDS ORDERED: QUET25TA PO ×2 (10:22)
[2017-03-18] MEDS ORDERED: HYDR20VI3 IV (10:22)
[2017-03-18] MEDS ORDERED: ACET325T14 PO (10:22)
[2017-03-18] MEDS ORDERED: IPRA3AMP NPPB (10:22)
[2017-03-18] MEDS ORDERED: POLY17PO5 PO (10:22)
[2017-03-18] MEDS ORDERED: FAMO20VI3 IVPush (10:22)
[2017-03-18] MEDS ORDERED: DIPH28CR5 TP (10:22)
[2017-03-18] MEDS ORDERED: INSU100I18 SQ-INSULIN (10:22)
[2017-03-18] MEDS ORDERED: LEVO150T PO (10:22)
[2017-03-18] MEDS ORDERED: IRON100V IV (10:22)
[2017-03-18] MEDS ORDERED: BISA10SU65 PR (10:22)
[2017-03-18] MEDS ORDERED: DIPH12.58 PO (10:22)
[2017-03-18] MEDS ORDERED: CARV6.2512 PO (10:22)
[2017-03-18] MEDS ORDERED: ONDA4VIA4 IVPush (10:22)
[2017-03-18] MEDS ORDERED: INSU100I28 SQ-INSULIN (10:22)
[2017-03-18] MEDS ORDERED: ATOR10TA9 PO (10:22)
[2017-03-18] MEDS ORDERED: BUPR75TA6 PO (10:22)
[2017-03-18] MEDS ORDERED: ALPR0.254 PO (10:22)
[2017-03-18] MEDS ORDERED: SACC250C4 NG (10:22)
[2017-03-18] MEDS ORDERED: VANC1VIA3 NG (10:22)
[2017-03-18] MEDS ORDERED: TRAM50TA2 PO (10:22)
[2017-03-18] MEDS: ONDANSETRON 2MG/ML, 2ML IVPush PRN (10:35)
[2017-03-18] MEDS ORDERED: INSULIN ASPART 100 UNITS/ML, PEN SQ-INSULIN SCH (12:00)
[2017-03-18] MEDS ORDERED: CATHFLO-ALTEPLASE 2 MG/2 ML CATHFLUSH ONE ×2 (13:00)
[2017-03-18] MEDS: CHOLESTYRAMINE LIGHT 4GM PACKET NG SCH (13:26)
[2017-03-18] MEDS: HYDROCORTISONE 100 MG INJ. IVPush SCH (13:26)
[2017-03-21] MEDS ORDERED: ARANESP 100 MCG/ML **ESRD SQ SCH (20:00)
== END 2017-03-18 16:45 | DRG 4 ==
LOC: ED 22:30 → EDIP 23:17 → 4WST 01-22 00:05 → ICU 02-02 12:38 → CCU 02-06 15:05
PROVIDERS: ADMIT Family Medicine; ATTEND Internal Medicine
PROC: 0T9B70Z Drainage of Bladder with Drainage Device, Via Natural or Artificial Opening (ICD-10-PCS; 2017-01-29)
PROC: 02HV33Z Insertion of Infusion Device into Superior Vena Cava, Percutaneous Approach (ICD-10-PCS; 2017-01-31)
PROC: B548ZZA Ultrasonography of Superior Vena Cava, Guidance (ICD-10-PCS; 2017-01-31)
PROC: 5A1945Z Respiratory Ventilation, 24-96 Consecutive Hours (ICD-10-PCS; 2017-02-02)
PROC: 0BH17EZ Insertion of Endotracheal Airway into Trachea, Via Natural or Artificial Opening (ICD-10-PCS; 2017-02-02)
PROC: 0B9J8ZX Drainage of Left Lower Lung Lobe, Via Natural or Artificial Opening Endoscopic, Diagnostic (ICD-10-PCS; 2017-02-05)
PROC: 5A1955Z Respiratory Ventilation, Greater than 96 Consecutive Hours (ICD-10-PCS; 2017-02-22)
PROC: 0BH17EZ Insertion of Endotracheal Airway into Trachea, Via Natural or Artificial Opening (ICD-10-PCS; 2017-02-22)
PROC: 02HV33Z Insertion of Infusion Device into Superior Vena Cava, Percutaneous Approach (ICD-10-PCS; 2017-02-24)
PROC: B5181ZA Fluoroscopy of Superior Vena Cava using Low Osmolar Contrast, Guidance (ICD-10-PCS; 2017-02-24)
PROC: 30233N1 Transfusion of Nonautologous Red Blood Cells into Peripheral Vein, Percutaneous Approach (ICD-10-PCS; 2017-02-26)
PROC: 02HV33Z Insertion of Infusion Device into Superior Vena Cava, Percutaneous Approach (ICD-10-PCS; 2017-03-11)
PROC: B548ZZA Ultrasonography of Superior Vena Cava, Guidance (ICD-10-PCS; 2017-03-11)
PROC: 0DH63UZ Insertion of Feeding Device into Stomach, Percutaneous Approach (ICD-10-PCS; 2017-03-12)
PROC: 0B113F4 Bypass Trachea to Cutaneous with Tracheostomy Device, Percutaneous Approach (ICD-10-PCS; principal; 2017-03-12 07:30)
DX: A41.81 Sepsis due to Enterococcus (principal); N17.0 Acute kidney failure with tubular necrosis; R65.21 Severe sepsis with septic shock; G93.40 Encephalopathy, unspecified; E43 Unspecified severe protein-calorie malnutrition; J18.9 Pneumonia, unspecified organism; J96.21 Acute and chronic respiratory failure with hypoxia; R09.2 Respiratory arrest; I13.0 Hypertensive heart and chronic kidney disease with heart failure and stage 1 through stage 4 chronic kidney disease, or unspecified chronic kidney disease; A04.7 Enterocolitis due to Clostridium difficile; E87.4 Mixed disorder of acid-base balance; E87.0 Hyperosmolality and hypernatremia; I50.32 Chronic diastolic (congestive) heart failure; E24.9 Cushing's syndrome, unspecified; E87.1 Hypo-osmolality and hyponatremia; Z68.41 Body mass index [BMI] 40.0-44.9, adult; I31.3 Pericardial effusion (noninflammatory); J44.0 Chronic obstructive pulmonary disease with (acute) lower respiratory infection; L02.211 Cutaneous abscess of abdominal wall; L03.115 Cellulitis of right lower limb; L03.116 Cellulitis of left lower limb; Z99.11 Dependence on respirator [ventilator] status; N39.0 Urinary tract infection, site not specified; Z99.81 Dependence on supplemental oxygen; R13.10 Dysphagia, unspecified; E86.0 Dehydration; E11.22 Type 2 diabetes mellitus with diabetic chronic kidney disease; E83.52 Hypercalcemia; E66.01 Morbid (severe) obesity due to excess calories; B96.1 Klebsiella pneumoniae [K. pneumoniae] as the cause of diseases classified elsewhere; D64.9 Anemia, unspecified; D75.89 Other specified diseases of blood and blood-forming organs; E03.9 Hypothyroidism, unspecified; E78.5 Hyperlipidemia, unspecified; E87.5 Hyperkalemia; F41.9 Anxiety disorder, unspecified; G47.33 Obstructive sleep apnea (adult) (pediatric); J32.9 Chronic sinusitis, unspecified; N18.9 Chronic kidney disease, unspecified; S30.1XXA Contusion of abdominal wall, initial encounter; Z79.4 Long term (current) use of insulin; Z79.52 Long term (current) use of systemic steroids; Z80.0 Family history of malignant neoplasm of digestive organs; Z83.3 Family history of diabetes mellitus; Z86.19 Personal history of other infectious and parasitic diseases; Z87.891 Personal history of nicotine dependence; Z99.2 Dependence on renal dialysis
CPT/HCPCS: 31624; 32555; 36415; 36556; 36558; 36569; 36600; 70450; 70486; 71010; 71250; 71275; 74000; 74176; 76705; 76770; 76937; 77001; 80048; 80053; 80202; 81001; 82010; 82272; 82306; 82310; 82330; 82397; 82436; 82533; 82570; 82728; 82803; 82962; 83036; 83520; 83540; 83550; 83605; 83615; 83735; 83970; 84100; 84133; 84145; 84155; 84156; 84165; 84300; 84439; 84443; 84478; 84481; 84484; 84550; 85014; 85018; 85025; 85651; 86038; 86039; 86140; 86160; 86162; 86256; 86430; 86704; 86706; 86708; 86803; 86850; 86900; 86923; 87040; 87070; 87077; 87081; 87086; 87106; 87186; 87205; 87324; 87340; 87493; 92950; 93005; 93306; 93970; 94002; 94003; 94150; 94640; 99285; B4087; J0696; J0712; J0882; J1335; J1644; J1756; J1815; J1940; J2185; J2250; J2405; J2543; J2704; J2997; J3010; J3370; J3490; J7620; P9047; Q9967; C1750; C1751; J1450; J1642; J1720; J2060; J2310; J2370; J3475; J7030; J7040; J7050; P9016; S0028

== ENCOUNTER 2018-01-04 08:15 | Emergency (ER) | payer BC ==
[~2018-01-04] VITALS: Ht 177.8 cm; Wt 112.0 kg
[~2018-01-04 08:15] MED LIST changes: +ACET325T14 PO; +ALPR0.254 PO; +AMLO5TAB2 PO; +BISA10SU65 PR; +BUPR75TA6 PO; +CA C1TAB60 PO; +CARV6.2512 PO; +CHOL100012 PO; +CLON-365 PO; +DARB100V SQ; +DIPH12.58 PO; +DIPH28CR5 TP; +DOCU100C33 PO; +DOXY100T PO; +ERGO500017 PO; +FAMO20VI3 IVPush; +FLUD0.1T PO; +FLUO10CA7 PO; +FLUO20CA19 PO; +FOLI-17 PO; +GABA300C10 PO; +GUAI5LIQ9 PO; +HEPA50002 SQ; +HYDR100V IVPush; +HYDR20VI3 IV; +INSU100C5 SQ-INSULIN; +INSU100I18 SQ-INSULIN; +INSU100I28 SQ-INSULIN; +INSU100V13 SQ-INSULIN; +IPRA3AMP NPPB; +IRON100V IV; +LACT20SO13 NG; +LEVO125T5 PO; +LEVO150T PO; +NYST1000 PO; +ONDA4VIA4 IVPush; -PIOG15TA2 PO; +PIOG15TA66 PO; +POLY17PO5 PO; +PRED5TAB PO; +QUET25TA PO; +SACC250C4 NG; +SIME80TA PO; +TRAM50TA2 PO; +VANC1VIA3 NG
[2018-01-04] MEDS ORDERED: SODIUM CHLORIDE 0.9% 1,000ML IVBOLUS ONE (09:00)
[2018-01-04] MEDS ORDERED: SODIUM CHLORIDE FLUSH 10ML SYR IVF ONE (09:00)
[2018-01-04 09:21] LABS: BASOPHILS % (AUTO) 1 % (0-1); EOSINOPHILS # (AUTO) 0.18 x10^3/uL (0-0.4); EOSINOPHILS % (AUTO) 2 % (1-7); LYMPHOCYTES # (AUTO) 3.04 x10^3/uL (1-3.4); LYMPHOCYTES % (AUTO) 27 % (22-44); MD NO; MEAN CORPUSCULAR HEMOGLOBIN 29.5 pg (27.0-34.8); MEAN CORPUSCULAR HGB CONC 33.6 g/dL (32.4-35.8); MEAN CORPUSCULAR VOLUME 87.9 fL (80-100); MEAN PLATELET VOLUME 7.5 fL (7.4-10.4); MONOCYTES # (AUTO) 0.64 x10^3/uL (0.2-0.8); MONOCYTES % (AUTO) 6 % (2-9); NEUTROPHILS # (AUTO) 7.14 x10^3/uL (1.8-6.8); NEUTROPHILS % (AUTO) 64 % (42-75); PLATELET COUNT 237 x10^3/uL (130-400); RED BLOOD COUNT 4.76 x10^6/uL (3.82-5.3); RED CELL DISTRIBUTION WIDTH 15.6 % (9.6-15.2)
[2018-01-04 09:33] LABS: ALANINE AMINOTRANSFERASE 48 U/L (12-78); ALBUMIN 3.1 g/dL (3.4-5.0); ANION GAP 9 mmol/L (5-15); CALCIUM 8.9 mg/dL (8.5-10.1); CHLORIDE 106 mmol/L (98-107)
[2018-01-04 09:37] LABS: ALKALINE PHOSPHATASE 133 U/L (45-117); BILIRUBIN,TOTAL 0.6 mg/dL (0.2-1.0); TOTAL PROTEIN 7.3 g/dL (6.4-8.2)
[2018-01-04 09:45] LABS: MICROSCOPIC INDICATED
[2018-01-04 09:54] LABS: CULTURE INDICATED? NO
[2018-01-04] MEDS ORDERED: OMNIPAQUE 350 MG/ML, 100ML BOTTLE ONE (09:57)
[2018-01-04 11:52] VITALS: BP 103/64
== END 2018-01-04 11:57 | disposition home or self-care (01) ==
LOC: ED 10:50
DX: N95.9 Unspecified menopausal and perimenopausal disorder (principal); R10.2 Pelvic and perineal pain; N93.9 Abnormal uterine and vaginal bleeding, unspecified; E11.9 Type 2 diabetes mellitus without complications; I10 Essential (primary) hypertension
CPT/HCPCS: 36415; 74177; 80053; 81001; 84703; 85025; 99285; J7030; Q9967